=== PATIENT | female | born 1955 | race African-American/Black ===

== ENCOUNTER 2016-12-14 21:48 | Emergency (ER) | payer MEDICARE, OTHER ==
[2015-09-09 05:38] VITALS: BP 114/78
[~2016-12-14] VITALS: Ht 170.2 cm; Wt 124.7 kg
[~2016-12-14 21:48] MED LIST: ASPI-482 PO; HYDR25TA9 PO; LISI10TA2 PO; LORA10TA3 PO; LORA10TA68 PO; RUTI1TAB PO
--- NOTE | 2016-12-14 22:57 | ED.ADGEN ---
Past Medical History Past Medical History: Asthma, COPD, Diabetes-Type II, Hypertension, Schizophrenia, TIA, Other Additional Past Medical Histor: chronic pain, obesity Past Surgical History: , Tonsillectomy Alcohol Use: None Drug Use: None Adult General Chief Complaint Chief Complaint: FACE PAIN HPI HPI Patient is a 61 year old woman, history of hypertension, type 2 diabetes mellitus, COPD, schizophrenia, who presents emergency Department with a complaint of right-sided facial pain and headache that began around 5:30 p.m. this afternoon. No neck pain, no injuries. Patient states she cannot take over- the-counter medications as they "cause my blood pressure to spike and my kidneys to fail". Patient states that she also experienced some shortness of breath" while running around today", has had swelling in her extremities are the past several days due to travel. She denies any chest pain, nausea or vomiting, any weakness numbness or tingling, states that the pain is located on the right side of her face, any sharp and stabbing in nature, with some radiation to the neck. No vision changes, urinary complaints, no drugs alcohol, admits to daily cigarette use. Denies any similar symptoms previously. Heart rate arrival was 102, blood pressure 153/92, oxygen saturation is 98% on room air, respiratory rate is 18 and unlabored. Review of Systems Review of Systems Constitutional: Denies fever or chills. [] Eyes: Denies change in visual acuity. [] HENT: Denies nasal congestion or sore throat. [] Respiratory: Denies cough, complaining of shortness of breath times one day, worse with activity. Cardiovascular: Denies chest pain or edema. [] GI: Denies abdominal pain, nausea, vomiting, bloody stools or diarrhea. [] : Denies dysuria. [] Musculoskeletal: Denies back pain or joint pain. [] Integument: Denies rash. [] Neurologic: Denies focal weakness or sensory changes. Right-sided headache, right-sided facial pain. Endocrine: Denies polyuria or polydipsia. [] Lymphatic: Denies swollen glands. [] Psychiatric: Denies depression or anxiety. [] Current Medications Current Medications Current Medications Medications (Trade) Dose Ordered Sig/Lupis Start Time Stop Time Status Last Admin Dose Admin Diphenhydramine HCl (Benadryl) 25 mg 1X ONCE 12/14/16 23:00 12/14/16 23:01 DC 12/14/16 23:39 25 MG Prochlorperazine Edisylate (Compazine) 10 mg 1X ONCE 12/14/16 23:00 12/14/16 23:01 DC 12/14/16 23:39 10 MG Allergies Allergies Allergies Coded Allergies Type Severity Reaction Last Updated Verified codeine Allergy Severe anaphylactic reaction 02/26/14 Yes Penicillins Allergy Intermediate 12/14/16 Yes Sulfa (Sulfonamide Antibiotics) Allergy Unknown 02/26/14 Yes erythromycin base Allergy Unknown 02/26/14 Yes Physical Exam Physical Exam Constitutional: Well developed, well nourished, no acute distress, non-toxic appearance. [] HENT: Normocephalic, atraumatic, bilateral external ears normal, oropharynx moist, no oral exudates, nose normal. [] Eyes: PERRLA, EOMI, conjunctiva normal, no discharge. [] Neck: Normal range of motion, no tenderness, supple, no stridor. Negative jolt accentuation test. [] Cardiovascular:Heart rate regular rhythm, no murmur, S1, S2, rubs or gallops. [] Lungs & Thorax: Bilateral breath sounds clear to auscultation, no wheezing, rhonchi, rales. No chest wall tenderness. [] Abdomen: Bowel sounds normal, soft, obese, no tenderness, no rebound, rigidity, no guarding, no masses, no pulsatile masses. [] Skin: Warm, dry, no erythema, no rash. [] Back: No tenderness, no CVA tenderness. [] Extremities: No tenderness, no cyanosis, no clubbing, ROM intact, no edema. Negative Homans sign. [] Neurologic: Alert and oriented X 3, normal motor function, normal sensory function, no focal deficits noted. [] Psychologic: Affect normal, judgement normal, mood normal. [] Current Patient Data Vital Signs Vital Signs Date Time Temp Pulse Resp B/P Pulse Ox O2 Delivery O2 Flow Rate FiO2 12/14/16 22:15 98.7 100 20 153/92 95 Room Air 98.7 Lab Values Laboratory Tests Test 12/14/16 23:05 12/14/16 23:27 12/14/16 23:30 White Blood Count 7.4x10^3/uL (4.0-11.0) Red Blood Count 4.25x10^6/uL (3.50-5.40) Hemoglobin 12.2g/dL (12.0-15.5) Hematocrit 37.1% (36.0-47.0) Mean Corpuscular Volume 87fL (79-100) Mean Corpuscular Hemoglobin 29pg (25-35) Mean Corpuscular Hemoglobin Concent 33g/dL (31-37) Red Cell Distribution Width 14.0% (11.5-14.5) Platelet Count 163x10^3/uL (140-400) Neutrophils (%) (Auto) 57% (31-73) Lymphocytes (%) (Auto) 34% (24-48) Monocytes (%) (Auto) 7% (0-9) Eosinophils (%) (Auto) 1% (0-3) Basophils (%) (Auto) 1% (0-3) Neutrophils # (Auto) 4.2x10^3uL (1.8-7.7) Lymphocytes # (Auto) 2.5x10^3/uL (1.0-4.8) Monocytes # (Auto) 0.5x10^3/uL (0.0-1.1) Eosinophils # (Auto) 0.1x10^3/uL (0.0-0.7) Basophils # (Auto) 0.1x10^3/uL (0.0-0.2) Sodium Level 143mmol/L (136-145) Potassium Level 3.6mmol/L (3.5-5.1) Chloride Level 106mmol/L (98-107) Carbon Dioxide Level 30mmol/L (21-32) Anion Gap 7 (6-14) Blood Urea Nitrogen 10mg/dL (7-20) Creatinine 0.9mg/dL (0.6-1.0) Estimated GFR (Cockcroft-Gault) 77.5 BUN/Creatinine Ratio 11 (6-20) Glucose Level 139mg/dL (70-99) H Calcium Level 9.2mg/dL (8.5-10.1) Total Bilirubin 0.3mg/dL (0.2-1.0) Aspartate Amino Transferase (AST) 21U/L (15-37) Alanine Aminotransferase (ALT) 21U/L (14-59) Alkaline Phosphatase 61U/L (46-116) Troponin I Quantitative < 0.017ng/mL (0.000-0.055) LN-Lsz-T-Type Natriuretic Peptide 88pg/mL (0-124) Total Protein 7.1g/dL (6.4-8.2) Albumin 3.8g/dL (3.4-5.0) Albumin/Globulin Ratio 1.2 (1.0-1.7) Influenza Type A Antigen Negative (NEGATIVE) Influenza Type B Antigen Negative (NEGATIVE) Urine Collection Type Unknown Urine Color Yellow Urine Clarity Clear Urine pH 6.0 Urine Specific [place] 1.010 Urine Protein Negativemg/dL (NEG-TRACE) Urine Glucose (UA) Negativemg/dL (NEG) Urine Ketones (Stick) Negativemg/dL (NEG) Urine Blood Negative (NEG) Urine Nitrite Negative (NEG) Urine Bilirubin Negative (NEG) Urine Urobilinogen Dipstick 0.2mg/dL (0.2 mg/dL) Urine Leukocyte Esterase Negative (NEG) Urine RBC Occ/HPF (0-2) Urine WBC Occ/HPF (0-4) Urine Squamous Epithelial Cells Few/LPF Urine Bacteria Few/HPF (0-FEW) Urine Mucus Slight/LPF Urine Opiates Screen Neg (NEG) Urine Methadone Screen Neg (NEG) Urine Barbiturates Neg (NEG) Urine Phencyclidine Screen Neg (NEG) Urine Amphetamine/Methamphetamine Neg (NEG) Urine Benzodiazepines Screen Neg (NEG) Urine Cocaine Screen Neg (NEG) Urine Cannabinoids Screen Neg (NEG) Urine Ethyl Alcohol Neg (NEG) Laboratory Tests 12/14/16 23:05 Laboratory Tests 12/14/16 23:05 EKG EKG ECG: Sinus tachycardia, heart rate 105 beats/minute, left axis deviation with left ventricle hypertrophy, QTC of 461, SD of 122, QRS of 94, no ST elevations or depressions, abnormal ECG, does not meet STEMI criteria. As interpreted by me. [] ECG: Sinus rhythm, heart rate 80 bpm, no ectopy. As noted by me. Radiology/Procedures Radiology/Procedures [] [address] [place] [address] IMAGING REPORT Signed PATIENT: DANY CHAVES ACCOUNT: [id number] : 1955 LOCATION: ER AGE: 61 SEX: F EXAM STATUS: REG ER ORD. PHYSICIAN: SOO SANCHEZ DO REASON: VELASQUEZ/R facial pain PROCEDURE: HEAD WO CONTRAST PROCEDURE CT head without intravenous contrast. HISTORY Headaches. Facial pain. TECHNIQUE Axial images are obtained of the head from the skull base through the vertex without IV contrast COMPARISON None. FINDINGS The ventricles are appropriate in size, shape, and location for the patient's age.No obvious intracranial mass, mass-effect, midline shift, hemorrhage or obvious acute infarction is identified.Basilar cisterns are patent. Bone windows demonstrate no acute calvarial abnormality.The visualized paranasal sinuses appear clear. IMPRESSION No acute intracranial process. Electronically signed by: Bo Schilling MD (Dec 14, 2016 23:31:33) DICTATED and SIGNED BY: BO SCHILLING MD DATE: 12/14/162330 CC: SOO SANCHEZ DO; UNKNOWN PCP NAME ~ Chest x-ray: One view: Top normal cardiac silhouette, no infiltrates, no effusions, no soft tissue or bony abnormalities identified. As interpreted by me. Course & Med Decision Making Course & Med Decision Making Pertinent Labs and Imaging studies reviewed. (See chart for details) Patient with multiple complaints, although primarily her complaint appears to be the right facial pain, distribution be consistent with trigeminal neuralgia. Noted be mildly tachycardic, at 105-106 in the ED, patient states that this is what happens when she experiences pain. Patient received Benadryl and Compazine in the ED, we'll CT of the head was pending based on the location and type of complaints. CT of the head along with x-ray and laboratory studies revealed no concerning findings aside from mild hyperglycemia. On reevaluation patient states her headache is fully resolved, she states that she is ready to go home. Patient is now ambulatory in the ED without issue, I did discuss with patient that she will require additional follow-up with her primary care provider and neurology for additional evaluation for potential trigeminal neuralgia. Patient heart rate is now in the 80s. We also discussed concerning symptoms that prompt return to the emergency department. Patient voiced understanding and agreement, was ambulating without issue in the ED. Discharged home in stable condition with family. Dragon Disclaimer Dragon Disclaimer This electronic medical record was generated, in whole or in part, using a voice recognition dictation system. Departure Impression: Primary Impression: Facial pain Disposition: 01 HOME, SELF-CARE Condition: IMPROVED SOO SANCHEZ DO Dec 14, 2016 22:57
[2016-12-14] MEDS ORDERED: DIPHENHYDRAMINE 50 MG/ML VIAL IVP ONE (23:00)
[2016-12-14] MEDS ORDERED: PROCHLORPERAZINE 10 MG/2 ML VIAL. IM ONE (23:00)
[2016-12-14 23:16] LABS: BASO # 0.1 x10^3/uL (0.0-0.2); BASO % 1 % (0-3); EOS % 1 % (0-3); HEMATOCRIT 37.1 % (36.0-47.0); HEMOGLOBIN 12.2 g/dL (12.0-15.5); LYMPH # 2.5 x10^3/uL (1.0-4.8); LYMPH % 34 % (24-48); MEAN CORPUSCULAR HEMOGLOBIN 29 pg (25-35); MEAN CORPUSCULAR HGB CONC 33 g/dL (31-37); MEAN CORPUSCULAR VOLUME 87 fL (79-100); MONO % 7 % (0-9); NEUT % 57 % (31-73); PLATELET COUNT 163 x10^3/uL (140-400); RED BLOOD COUNT 4.25 x10^6/uL (3.50-5.40); WHITE BLOOD COUNT 7.4 x10^3/uL (4.0-11.0)
[2016-12-14 23:28] LABS: CALCIUM 9.2 mg/dL (8.5-10.1); CREATININE 0.9 mg/dL (0.6-1.0); GFR 77.5; POTASSIUM 3.6 mmol/L (3.5-5.1)
--- NOTE | 2016-12-14 23:32 | RAD ---
PROCEDURE CT head without intravenous contrast. HISTORY Headaches. Facial pain. TECHNIQUE Axial images are obtained of the head from the skull base through the vertex without IV contrast COMPARISON None. FINDINGS The ventricles are appropriate in size, shape, and location for the patient's age.No obvious intracranial mass, mass-effect, midline shift, hemorrhage or obvious acute infarction is identified.Basilar cisterns are patent. Bone windows demonstrate no acute calvarial abnormality.The visualized paranasal sinuses appear clear. IMPRESSION No acute intracranial process. Electronically signed by: Bo Green MD (Dec 14, 2016 23:31:33)
[2016-12-14 23:34] LABS: ALBUMIN 3.8 g/dL (3.4-5.0); ALBUMIN/GLOBULIN RATIO 1.2 (1.0-1.7); TOTAL BILIRUBIN 0.3 mg/dL (0.2-1.0); TOTAL PROTEIN 7.1 g/dL (6.4-8.2)
[2016-12-15 00:03] LABS: BILIRUBIN,URINE NEGATIVE (NEG); GLUCOSE,URINE NEGATIVE (NEG); NITRITE,URINE NEGATIVE (NEG); PROTEIN,URINE NEGATIVE (NEG-TRACE); UROBILINOGEN,URINE 0.2 mg/dL (0.2 mg/dL)
[2016-12-15 00:06] LABS: BARBITURATES NEG (NEG); BENZODIAZEPINES NEG (NEG); CANNABINOIDS NEG (NEG); COCAINE NEG (NEG); METHADONE NEG (NEG); OPIATES NEG (NEG); PHENCYCLIDINE NEG (NEG)
[2016-12-15 00:07] LABS: ETHANOL, URINE NEG (NEG)
[2016-12-15 00:14] LABS: BACTERIA,URINE FEW /HPF (0-FEW); RBC,URINE OCC /HPF (0-2); SQUAMOUS EPITHELIAL CELL,UR FEW /LPF; WBC,URINE OCC /HPF (0-4)
[2016-12-15 00:18] LABS: OBC FLU VALID
--- NOTE | 2016-12-15 06:59 | EKG ---
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
--- NOTE | 2016-12-15 07:57 | RAD ---
Portable chest, 12/14/2016: History: Shortness of breath Comparison is made to a study from 02/26/2014. The heart appears to be within normal limits in size. There is mild calcific plaquing of the thoracic aorta. The pulmonary vascularity is normal. No pulmonary infiltrates are seen. There is no evidence of pleural fluid. IMPRESSION: No acute cardiopulmonary abnormality is detected.
== END 2016-12-15 01:04 | disposition home or self-care (01) ==
LOC: ER 21:48
DX: R51 Headache (principal); E11.65 Type 2 diabetes mellitus with hyperglycemia; R06.02 Shortness of breath; M79.89 Other specified soft tissue disorders; R00.0 Tachycardia, unspecified; F20.9 Schizophrenia, unspecified; G89.29 Other chronic pain; I10 Essential (primary) hypertension; J44.9 Chronic obstructive pulmonary disease, unspecified; J45.909 Unspecified asthma, uncomplicated; E66.9 Obesity, unspecified; Z86.73 Personal history of transient ischemic attack (TIA), and cerebral infarction without residual deficits; Z68.41 Body mass index [BMI] 40.0-44.9, adult; Z88.2 Allergy status to sulfonamides; Z88.0 Allergy status to penicillin; Z88.5 Allergy status to narcotic agent; Z88.1 Allergy status to other antibiotic agents
CPT/HCPCS: 36415; 70450; 71010; 80053; 81001; 83880; 84484; 85027; 87804; 93005; 96372; 96374; 99285; G0481; J0780; J1200

== ENCOUNTER 2016-12-18 06:53 | Emergency (ER) | payer MEDICARE, OTHER ==
[~2016-12-18] VITALS: Ht 170.2 cm; Wt 123.8 kg
--- NOTE | 2016-12-18 07:16 | PHYS DOC ---
Past Medical History Past Medical History: Asthma, COPD, Diabetes-Type II, Hypertension, Schizophrenia, TIA, Other Additional Past Medical Histor: chronic pain, obesity Past Surgical History: Tonsillectomy Alcohol Use: None Drug Use: None Adult General Chief Complaint Chief Complaint: HEADACHE HPI HPI Patient is a 61 year old -[place] female who presents with headache and left sided muscle cramps. She has a past medical history of asthma, COPD, type 2 diabetes, hypertension, chronic pain, obesity and schizophrenia. She was seen here 4 days ago for her headache and had a negative CT scan and workup at that time. She states that this is her normal headache subsequent top of her head and goes down to the bottom of her head she rates the pain about a 3 out of 10. She also complains of left-sided body pain that goes down into her left leg and makes her "toes curl" from spasming. She denies any fevers chills nausea or vomiting, she denies any chest pain or shortness of breath. She did take an aspirin yesterday when the symptoms started in late and took a nap. She denies any neck stiffness or confusion. She states the headache was gradual in nature and this is no different than her other headaches she has. Review of Systems Review of Systems Constitutional: Denies fever or chills [] Eyes: Denies change in visual acuity, redness, or eye pain [] HENT: Denies nasal congestion or sore throat [] Respiratory: Denies cough or shortness of breath [] Cardiovascular: No additional information not addressed in HPI [] GI: Denies abdominal pain, nausea, vomiting, bloody stools or diarrhea [] : Denies dysuria or hematuria [] Musculoskeletal: Denies back pain or joint pain, positive for left leg cramps [] Integument: Denies rash or skin lesions [] Neurologic: Denies focal weakness or sensory changes , positive for headache [] Endocrine: Denies polyuria or polydipsia [] Current Medications Current Medications Current Medications Medications (Trade) Dose Ordered Sig/Lupis Start Time Stop Time Status Last Admin Dose Admin Acetaminophen (Tylenol) 1,000 mg 1X ONCE 12/18/16 07:30 12/18/16 07:31 DC 12/18/16 08:22 1,000 MG Allergies Allergies Allergies Coded Allergies Type Severity Reaction Last Updated Verified codeine Allergy Severe anaphylactic reaction 02/26/14 Yes Penicillins Allergy Intermediate 12/14/16 Yes Sulfa (Sulfonamide Antibiotics) Allergy Unknown 02/26/14 Yes erythromycin base Allergy Unknown 02/26/14 Yes Physical Exam Physical Exam Constitutional: Well developed, well nourished, no acute distress, non-toxic appearance. [] HENT: Normocephalic, atraumatic, bilateral external ears normal, oropharynx moist, no oral exudates, nose normal. [] Eyes: PERRLA, EOMI, conjunctiva normal, no discharge. [] Neck: Normal range of motion, no tenderness, supple, no stridor. [] Cardiovascular:Heart rate regular rhythm, no murmur [] Lungs & Thorax: Bilateral breath sounds clear to auscultation [] Abdomen: Bowel sounds normal, soft, no masses, no pulsatile masses., Mild tenderness to very light touch along the left lateral abdomen [] Skin: Warm, dry, no erythema, no rash. [] Back: No tenderness, no CVA tenderness. [] Extremities: No tenderness, no cyanosis, no clubbing, ROM intact, no edema. [] Neurologic: Alert and oriented X 3, normal motor function, normal sensory function, no focal deficits noted. [] Psychologic: Affect normal, judgement normal, mood normal. [] Current Patient Data Vital Signs Vital Signs Date Time Temp Pulse Resp B/P Pulse Ox O2 Delivery O2 Flow Rate FiO2 12/18/16 07:10 97.9 101 18 184/86 96 Room Air 97.9 Lab Values Laboratory Tests Test 12/18/16 07:30 12/18/16 07:40 Urine Collection Type Void Urine Color Yellow Urine Clarity Clear Urine pH 6.0 Urine Specific [place] 1.010 Urine Protein Negativemg/dL (NEG-TRACE) Urine Glucose (UA) Negativemg/dL (NEG) Urine Ketones (Stick) Negativemg/dL (NEG) Urine Blood Negative (NEG) Urine Nitrite Negative (NEG) Urine Bilirubin Negative (NEG) Urine Urobilinogen Dipstick 0.2mg/dL (0.2 mg/dL) Urine Leukocyte Esterase Negative (NEG) Urine RBC Occ/HPF (0-2) Urine WBC Occ/HPF (0-4) Urine Squamous Epithelial Cells Mod/LPF Urine Bacteria Moderate/HPF (0-FEW) Urine Mucus Slight/LPF Urine Test Negative (NEG) White Blood Count 6.0x10^3/uL (4.0-11.0) Red Blood Count 4.80x10^6/uL (3.50-5.40) Hemoglobin 13.6g/dL (12.0-15.5) Hematocrit 42.0% (36.0-47.0) Mean Corpuscular Volume 87fL (79-100) Mean Corpuscular Hemoglobin 28pg (25-35) Mean Corpuscular Hemoglobin Concent 33g/dL (31-37) Red Cell Distribution Width 13.8% (11.5-14.5) Platelet Count 200x10^3/uL (140-400) Neutrophils (%) (Auto) 56% (31-73) Lymphocytes (%) (Auto) 34% (24-48) Monocytes (%) (Auto) 8% (0-9) Eosinophils (%) (Auto) 2% (0-3) Basophils (%) (Auto) 1% (0-3) Neutrophils # (Auto) 3.4x10^3uL (1.8-7.7) Lymphocytes # (Auto) 2.0x10^3/uL (1.0-4.8) Monocytes # (Auto) 0.5x10^3/uL (0.0-1.1) Eosinophils # (Auto) 0.1x10^3/uL (0.0-0.7) Basophils # (Auto) 0.0x10^3/uL (0.0-0.2) Sodium Level 139mmol/L (136-145) Potassium Level 4.3mmol/L (3.5-5.1) Chloride Level 101mmol/L (98-107) Carbon Dioxide Level 29mmol/L (21-32) Anion Gap 9 (6-14) Blood Urea Nitrogen 14mg/dL (7-20) Creatinine 0.9mg/dL (0.6-1.0) Estimated GFR (Cockcroft-Gault) 77.5 BUN/Creatinine Ratio 16 (6-20) Glucose Level 116mg/dL (70-99) H Calcium Level 9.5mg/dL (8.5-10.1) Total Bilirubin 0.6mg/dL (0.2-1.0) Aspartate Amino Transferase (AST) 29U/L (15-37) Alanine Aminotransferase (ALT) 29U/L (14-59) Alkaline Phosphatase 68U/L (46-116) Total Protein 8.6g/dL (6.4-8.2) H Albumin 4.2g/dL (3.4-5.0) Albumin/Globulin Ratio 1.0 (1.0-1.7) Lipase 122U/L (73-393) Laboratory Tests 12/18/16 07:40 Laboratory Tests 12/18/16 07:40 EKG EKG [] Radiology/Procedures Radiology/Procedures [] Impressions: Headache Muscle cramps Course & Med Decision Making Course & Med Decision Making Pertinent Labs and Imaging studies reviewed. (See chart for details) Patient presented with mild headache which improved with 1 g of Tylenol and left leg muscle cramps. I will obtain basic labs to look at lipase and electrolytes. These are all normal. She is feeling much better and will be discharged with cyclobenzaprine 10 mg when necessary every 8 hours for muscle spasms. She is instructed not to drive while taking his medicines that can make her sleepy and impair her judgment. She is agreeable plan being discharged in stable condition to follow up with her primary care physician within the week. She is to return ER for worsening symptoms, chest pain shortness breath or other concerns. Dragon Disclaimer Dragon Disclaimer This electronic medical record was generated, in whole or in part, using a voice recognition dictation system. Departure Departure Impression: Primary Impression: Headache Additional Impression: Muscle spasm Disposition: 01 HOME, SELF-CARE Condition: IMPROVED Referrals: UNKNOWN PCP NAME (PCP) Patient Instructions: Muscle Cramps, [id number] Scripts Cyclobenzaprine Hcl 10 Mg Tablet1 Tab PO QHS #30 TAB Prov:JOSE RAMSAY MD 12/18/16 Problem Qualifiers JOSE RAMSAY MD Dec 18, 2016 07:16
[2016-12-18] MEDS ORDERED: ACETAMINOPHEN 500 MG TABLET PO ONE (07:30)
[2016-12-18 07:42] LABS: BILIRUBIN,URINE NEGATIVE (NEG); GLUCOSE,URINE NEGATIVE (NEG); NITRITE,URINE NEGATIVE (NEG); PROTEIN,URINE NEGATIVE (NEG-TRACE); UROBILINOGEN,URINE 0.2 mg/dL (0.2 mg/dL)
[2016-12-18 07:46] LABS: NEG OBC UR NEG; POS OBC UR POS
[2016-12-18 07:49] LABS: BACTERIA,URINE MODERATE /HPF (0-FEW); RBC,URINE OCC /HPF (0-2); SQUAMOUS EPITHELIAL CELL,UR MOD /LPF; WBC,URINE OCC /HPF (0-4)
[2016-12-18 07:54] LABS: BASO % 1 % (0-3); EOS % 2 % (0-3); HEMOGLOBIN 13.6 g/dL (12.0-15.5); LYMPH % 34 % (24-48); MEAN CORPUSCULAR HEMOGLOBIN 28 pg (25-35); MEAN CORPUSCULAR HGB CONC 33 g/dL (31-37); MEAN CORPUSCULAR VOLUME 87 fL (79-100); MONO % 8 % (0-9); NEUT % 56 % (31-73); PLATELET COUNT 200 x10^3/uL (140-400); RED CELL DISTRIBUTION WIDTH 13.8 % (11.5-14.5)
[2016-12-18 08:11] LABS: CALCIUM 9.5 mg/dL (8.5-10.1); CREATININE 0.9 mg/dL (0.6-1.0); GFR 77.5; POTASSIUM 4.3 mmol/L (3.5-5.1)
[2016-12-18 08:16] LABS: ALBUMIN 4.2 g/dL (3.4-5.0); TOTAL BILIRUBIN 0.6 mg/dL (0.2-1.0); TOTAL PROTEIN 8.6 g/dL (6.4-8.2)
[2016-12-18] MEDS ORDERED: CYCL10TA2 PO (08:57)
[2016-12-18 09:03] VITALS: BP 176/84
== END 2016-12-18 09:05 | disposition home or self-care (01) ==
LOC: ER 06:53
DX: R51 Headache (principal); M62.838 Other muscle spasm; J45.909 Unspecified asthma, uncomplicated; I10 Essential (primary) hypertension; E11.9 Type 2 diabetes mellitus without complications; J44.9 Chronic obstructive pulmonary disease, unspecified; G89.29 Other chronic pain; E66.9 Obesity, unspecified; Z68.41 Body mass index [BMI] 40.0-44.9, adult; Z86.73 Personal history of transient ischemic attack (TIA), and cerebral infarction without residual deficits; Z88.0 Allergy status to penicillin; Z88.2 Allergy status to sulfonamides; Z88.1 Allergy status to other antibiotic agents; Z88.5 Allergy status to narcotic agent
CPT/HCPCS: 36415; 80053; 81001; 81025; 83690; 85027; 87086; 99284

== ENCOUNTER 2016-12-29 12:15 | Inpatient (IN) | payer MEDICARE, OTHER ==
[~2016-12-29] VITALS: Ht 170.2 cm; Wt 117.2 kg
[~2016-12-29 12:15] MED LIST changes: +CYCL10TA2 PO
[2016-12-29 13:09] LABS: BASO # 0.1 x10^3/uL (0.0-0.2); BASO % 1 % (0-3); EOS % 2 % (0-3); HEMATOCRIT 40.2 % (36.0-47.0); HEMOGLOBIN 13.1 g/dL (12.0-15.5); LYMPH # 2.4 x10^3/uL (1.0-4.8); LYMPH % 42 % (24-48); MEAN CORPUSCULAR HEMOGLOBIN 28 pg (25-35); MEAN CORPUSCULAR HGB CONC 33 g/dL (31-37); MEAN CORPUSCULAR VOLUME 86 fL (79-100); MONO % 8 % (0-9); NEUT % 48 % (31-73); PLATELET COUNT 184 x10^3/uL (140-400); RED BLOOD COUNT 4.66 x10^6/uL (3.50-5.40); RED CELL DISTRIBUTION WIDTH 13.9 % (11.5-14.5); WHITE BLOOD COUNT 5.8 x10^3/uL (4.0-11.0)
--- NOTE | 2016-12-29 13:10 | ED.ADGEN ---
Past Medical History Past Medical History: Asthma, COPD, Diabetes-Type II, Hypertension, Schizophrenia, TIA, Other Additional Past Medical Histor: chronic pain, obesity Past Surgical History: Tonsillectomy Alcohol Use: None Drug Use: None Adult General Chief Complaint Chief Complaint: NEURO SYMPTOMS/DEFICITS HPI HPI Patient is a 61 year old woman, history of hypertension, TIA, type 2 diabetes mellitus, COPD, schizophrenia, who presents to the emergency department with a complaint of right hand weakness, which began around 7:00 in the morning while she was watching breakfast dishes. Patient states that she then noted she developed a gradually worsening right-sided headache, similar headaches that she 's had previously, which she states radiated down the entire right side of her head into her neck and right upper extremity. Patient states she is also experiencing some numbness in her fifth digit of the right hand, and in the left leg, also experiencing pain in the left lower extremity along with the numbness, no weakness in the left lower extremity. She states that the symptoms have been persistent since about 7:00 this morning, states that she experienced previous symptoms several weeks ago, was diagnosed with a TIA. She states that she took 5 baby aspirin at home, she generally is told to take baby aspirin on a regular basis, she states she isn't compliant all other medications. Denies any injuries, any other areas of weakness, numbness or tingling, states that she has felt nauseous the past several days, with occasional episodes of shortness of breath, no chest pain, no fevers or chills. Review of Systems Review of Systems Constitutional: Denies fever or chills. [] Eyes: Denies change in visual acuity. [] HENT: Denies nasal congestion or sore throat. [] Respiratory: Denies cough, complaining of mild shortness of breath today.] Cardiovascular: Denies chest pain or edema. [] GI: Denies abdominal pain, nausea, vomiting, bloody stools or diarrhea. [] : Denies dysuria. [] Musculoskeletal: Denies back pain or joint pain. [] Integument: Denies rash. [] Neurologic: Complaining of right-sided headache, radiating down into the right side of her body, with weakness in her right hand, associated with pain in the arm as well, also pain in the left lower extremity and tingling. [] Endocrine: Denies polyuria or polydipsia. [] Lymphatic: Denies swollen glands. [] Psychiatric: Denies depression or anxiety. [] Allergies Allergies Allergies Coded Allergies Type Severity Reaction Last Updated Verified codeine Allergy Severe anaphylactic reaction 02/26/14 Yes Penicillins Allergy Intermediate 12/14/16 Yes Sulfa (Sulfonamide Antibiotics) Allergy Unknown 02/26/14 Yes erythromycin base Allergy Unknown 02/26/14 Yes Physical Exam Physical Exam Constitutional: Well developed, well nourished, no acute distress, non-toxic appearance. [] HENT: Normocephalic, atraumatic, bilateral external ears normal, oropharynx moist, no oral exudates, nose normal. [] Eyes: PERRLA, EOMI, conjunctiva normal, no discharge. [] Neck: Normal range of motion, no tenderness, supple, no stridor. [] Cardiovascular:Heart rate regular rhythm, no murmur, S1, S2, no rubs or gallops. [] Lungs & Thorax: Bilateral breath sounds clear to auscultation [] Abdomen: Bowel sounds normal, soft, no tenderness, no masses, no pulsatile masses. [] Skin: Warm, dry, no erythema, no rash. [] Back: No tenderness, no CVA tenderness. [] Extremities: No tenderness, no cyanosis, no clubbing, ROM intact, no edema. [] Neurologic: Alert and oriented X 3, patient states that she is seen me previously, during a recent visit, any strokes feels performed by nursing staff , with report of 10, however the patient does answer all questions appropriately during my interview, does complain of decreased sensation in the left lower extremity, and right hand and exhibits 5 out of 5 strength in all extremities during my examination. Psychologic: Affect normal, judgement normal, mood normal. [] Current Patient Data Vital Signs Vital Signs Date Time Temp Pulse Resp B/P Pulse Ox O2 Delivery O2 Flow Rate FiO2 12/29/16 12:30 98.8 98 19 151/92 96 Room Air 98.8 Lab Values Laboratory Tests Test 12/29/16 12:30 12/29/16 13:10 White Blood Count 5.8x10^3/uL (4.0-11.0) Red Blood Count 4.66x10^6/uL (3.50-5.40) Hemoglobin 13.1g/dL (12.0-15.5) Hematocrit 40.2% (36.0-47.0) Mean Corpuscular Volume 86fL (79-100) Mean Corpuscular Hemoglobin 28pg (25-35) Mean Corpuscular Hemoglobin Concent 33g/dL (31-37) Red Cell Distribution Width 13.9% (11.5-14.5) Platelet Count 184x10^3/uL (140-400) Neutrophils (%) (Auto) 48% (31-73) Lymphocytes (%) (Auto) 42% (24-48) Monocytes (%) (Auto) 8% (0-9) Eosinophils (%) (Auto) 2% (0-3) Basophils (%) (Auto) 1% (0-3) Neutrophils # (Auto) 2.8x10^3uL (1.8-7.7) Lymphocytes # (Auto) 2.4x10^3/uL (1.0-4.8) Monocytes # (Auto) 0.4x10^3/uL (0.0-1.1) Eosinophils # (Auto) 0.1x10^3/uL (0.0-0.7) Basophils # (Auto) 0.1x10^3/uL (0.0-0.2) Prothrombin Time 13.6SEC (11.7-14.0) Prothrombin Time INR 1.1 (0.8-1.1) PTT 26SEC (24-38) Sodium Level 141mmol/L (136-145) Potassium Level 4.0mmol/L (3.5-5.1) Chloride Level 103mmol/L (98-107) Carbon Dioxide Level 29mmol/L (21-32) Anion Gap 9 (6-14) Blood Urea Nitrogen 10mg/dL (7-20) Creatinine 0.9mg/dL (0.6-1.0) Estimated GFR (Cockcroft-Gault) 77.5 BUN/Creatinine Ratio 11 (6-20) Glucose Level 93mg/dL (70-99) Calcium Level 9.2mg/dL (8.5-10.1) Total Bilirubin 0.7mg/dL (0.2-1.0) Aspartate Amino Transferase (AST) 29U/L (15-37) Alanine Aminotransferase (ALT) 27U/L (14-59) Alkaline Phosphatase 65U/L (46-116) Troponin I Quantitative < 0.017ng/mL (0.000-0.055) Total Protein 7.4g/dL (6.4-8.2) Albumin 4.1g/dL (3.4-5.0) Albumin/Globulin Ratio 1.2 (1.0-1.7) Urine Collection Type Unknown Urine Color Yellow Urine Clarity Clear Urine pH 6.5 Urine Specific [place] 1.010 Urine Protein Negativemg/dL (NEG-TRACE) Urine Glucose (UA) Negativemg/dL (NEG) Urine Ketones (Stick) Negativemg/dL (NEG) Urine Blood Negative (NEG) Urine Nitrite Negative (NEG) Urine Bilirubin Negative (NEG) Urine Urobilinogen Dipstick 0.2mg/dL (0.2 mg/dL) Urine Leukocyte Esterase Negative (NEG) Urine RBC 0/HPF (0-2) Urine WBC 0/HPF (0-4) Urine Squamous Epithelial Cells Few/LPF Urine Bacteria Few/HPF (0-FEW) Urine Opiates Screen Neg (NEG) Urine Methadone Screen Neg (NEG) Urine Barbiturates Neg (NEG) Urine Phencyclidine Screen Neg (NEG) Urine Amphetamine/Methamphetamine Neg (NEG) Urine Benzodiazepines Screen Neg (NEG) Urine Cocaine Screen Neg (NEG) Urine Cannabinoids Screen Neg (NEG) Urine Ethyl Alcohol Neg (NEG) Laboratory Tests 12/29/16 12:30 Laboratory Tests 12/29/16 12:30 EKG EKG EC:15: Sinus rhythm, heart rate 94 beats minute, left axis deviation with left ventricle hypertrophy noted, QTc of 443, DC 166, QRS of 104, patient with T -wave inversions noted in lead 3, abnormal ECG, does not meet STEMI criteria. As interpreted by me. [] Radiology/Procedures Radiology/Procedures [] [facility] [address] [place], [place] [id number] IMAGING REPORT Signed PATIENT: DANY CHAVES ACCOUNT: [id number] : 1955 LOCATION: ER AGE: 61 SEX: F EXAM [id number] STATUS: REG ER ORD. PHYSICIAN: SOO SANCHEZ DO REASON: SOB/weakness PROCEDURE: CHEST AP ONLY; HEAD WO CONTRAST Exam performed: CT scan of the head without contrast. Date of Service: 12/29/16. Comparison: CT head without contrast from 12/14/16. Clinical History: Weakness in the right hand with headache for 2 days Technique: Helical acquisitions are obtained from the foramen magnum to the vertex without intravenous administration of contrast. Findings: The ventricles are midline without evidence of dilatation. There is mild atrophy. Normal sierra-white differentiation is maintained. There is no extra axial fluid collection, intraparenchymal hemorrhage or mass lesion. The visualized portions of the orbits, paranasal sinuses and the mastoid air cells appear clear. The calvarium is intact. Impression: 1. No acute intracranial process detected. PQRS Compliance Statement: One or more of the following individualized dose reduction techniques were utilized for this examination: 1. Automated exposure control 2. Adjustment of the mA and/or kV according to patient size 3. Use of iterative reconstruction technique End impression Single AP upright portable view chest findings: Cardiomediastinal silhouette is within upper limits of normal. No acute infiltrates, effusion or pneumothorax is detected. The bony structures are normal. Impression: No acute cardiopulmonary process is detected. DICTATED and SIGNED BY: HUDSON OCAMPO MD DATE: 12/29/16 1327 CC: SOO SANCHEZ DO; SUSANNA GARCIA ~ Impressions: [facility] [address] [place] [address] IMAGING REPORT Signed PATIENT: DANY CHAVES ACCOUNT: [id number] : 1955 LOCATION: ER AGE: 61 SEX: F EXAM [id number] STATUS: REG ER ORD. PHYSICIAN: SOO SANCHEZ DO REASON: SOB/weakness PROCEDURE: CHEST AP ONLY; HEAD WO CONTRAST Exam performed: CT scan of the head without contrast. Date of Service: 12/29/16. Comparison: CT head without contrast from 12/14/16. Clinical History: Weakness in the right hand with headache for 2 days Technique: Helical acquisitions are obtained from the foramen magnum to the vertex without intravenous administration of contrast. Findings: The ventricles are midline without evidence of dilatation. There is mild atrophy. Normal sierra-white differentiation is maintained. There is no extra axial fluid collection, intraparenchymal hemorrhage or mass lesion. The visualized portions of the orbits, paranasal sinuses and the mastoid air cells appear clear. The calvarium is intact. Impression: 1. No acute intracranial process detected. PQRS Compliance Statement: One or more of the following individualized dose reduction techniques were utilized for this examination: 1. Automated exposure control 2. Adjustment of the mA and/or kV according to patient size 3. Use of iterative reconstruction technique End impression Single AP upright portable view chest findings: Cardiomediastinal silhouette is within upper limits of normal. No acute infiltrates, effusion or pneumothorax is detected. The bony structures are normal. Impression: No acute cardiopulmonary process is detected. DICTATED and SIGNED BY: HUDSON OCAMPO MD DATE: 12/29/16 3483 CC: SOO SANCHEZ DO; SUSANNA GARCIA ~ Course & Med Decision Making Course & Med Decision Making Pertinent Labs and Imaging studies reviewed. (See chart for details) Patient is more than 6 hours out from reported initial onset of symptoms. Patient also noted to have presented with similar complaints on multiple other occasions, along with headache, is complaining of pain in her extremities with this associated report of paresthesias and weakness. CT of the head ordered, along with laboratory studies after discussion with patient. Although patient initially had a 90 stroke scale importance 10, during my examination she is oriented 4, 5-5 strength in all extremities, complaining of continued decreased sensation in her right fifth digit, this is the only complaint that remains, aside from the mild right-sided headache. Patient complaining of headache in the right side of her head, is consistent with symptoms that she's experienced previously, was gradual in onset, not associated with neck pain. Received CT of the head, chest x-ray, ECG and laboratory studies, no acutely concerning findings were identified. Did discuss the patient, at this point will admit to the hospital for evaluation by neurology, patient is a history of TIA as stated, and has already taken aspirin prior to arrival in the ED. I did contact the office of Dr. Raymundo, patient has previously seen Dr. Alexander, states that she is planning to follow up with the future with Dr. Raymundo, but has not yet been seen in this office, therefore I spoke with Dr. Mckeon of internal medicine, patient was accepted to her service as a full admission to the medical telemetry floor, with consultation placed request for Dr. Barrera neurology , along with bridge orders. Dragon Disclaimer Dragon Disclaimer This electronic medical record was generated, in whole or in part, using a voice recognition dictation system. Departure Impression: Primary Impression: Headache Additional Impression: Neurological complaint Disposition: ADMITTED INPATIENT Condition: IMPROVED Problem Qualifiers Primary Impression: Headache Headache type: unspecified Headache chronicity pattern: episodic headache Intractability: not intractable Qualified Code: R51 - Headache SOO SANCHEZ DO Dec 29, 2016 13:09
--- NOTE | 2016-12-29 13:18 | EKG ---
[facility] [address] [place] [address] Test Date: 2016-12-29 Test Time: 12:15:52 Pat Name: DANY CHAVES Department: Room: Gender: F Pole Maker: : 1955 Requested By: SOO SANCHEZ Order Number: [id number] Reading MD: Nate Arita Measurements Intervals [place] Rate: 94 P: 50 AK: 166 QRS: -29 QRSD: 104 T: 7 QT: 354 QTc: 443 Interpretive Statements SINUS RHYTHM ATRIAL PREMATURE COMPLEX(ES) Electronically Signed On 01-04-2017 14:19:28 ELECTROMECH[employer]ICAL EQUIPMENT TESTER by Nate Arita
[2016-12-29 13:19] LABS: BILIRUBIN,URINE NEGATIVE (NEG); GLUCOSE,URINE NEGATIVE (NEG); NITRITE,URINE NEGATIVE (NEG); PH,URINE 6.5; PROTEIN,URINE NEGATIVE (NEG-TRACE); UROBILINOGEN,URINE 0.2 mg/dL (0.2 mg/dL)
[2016-12-29 13:25] LABS: BARBITURATES NEG (NEG); BENZODIAZEPINES NEG (NEG); CANNABINOIDS NEG (NEG); COCAINE NEG (NEG); METHADONE NEG (NEG); OPIATES NEG (NEG); PHENCYCLIDINE NEG (NEG)
[2016-12-29 13:30] LABS: ETHANOL, URINE NEG (NEG)
[2016-12-29 13:31] LABS: INR 1.1 (0.8-1.1); PROTHROMBIN TIME PATIENT 13.6 SEC (11.7-14.0)
--- NOTE | 2016-12-29 13:31 | RAD ---
Exam performed: CT scan of the head without contrast. Date of Service: 12/29/16. Comparison: CT head without contrast from 12/14/16. Clinical History: Weakness in the right hand with headache for 2 days Technique: Helical acquisitions are obtained from the foramen magnum to the vertex without intravenous administration of contrast. Findings: The ventricles are midline without evidence of dilatation. There is mild atrophy. Normal sierra-white differentiation is maintained. There is no extra axial fluid collection, intraparenchymal hemorrhage or mass lesion. The visualized portions of the orbits, paranasal sinuses and the mastoid air cells appear clear. The calvarium is intact. Impression: 1. No acute intracranial process detected. PQRS Compliance Statement: One or more of the following individualized dose reduction techniques were utilized for this examination: 1. Automated exposure control 2. Adjustment of the mA and/or kV according to patient size 3. Use of iterative reconstruction technique End impression Single AP upright portable view chest findings: Cardiomediastinal silhouette is within upper limits of normal. No acute infiltrates, effusion or pneumothorax is detected. The bony structures are normal. Impression: No acute cardiopulmonary process is detected.
[2016-12-29 13:35] LABS: BACTERIA,URINE FEW /HPF (0-FEW); RBC,URINE 0 /HPF (0-2); SQUAMOUS EPITHELIAL CELL,UR FEW /LPF; WBC,URINE 0 /HPF (0-4)
[2016-12-29 13:39] LABS: CALCIUM 9.2 mg/dL (8.5-10.1); CREATININE 0.9 mg/dL (0.6-1.0); GFR 77.5
[2016-12-29 13:44] LABS: ALBUMIN 4.1 g/dL (3.4-5.0); ALBUMIN/GLOBULIN RATIO 1.2 (1.0-1.7); TOTAL BILIRUBIN 0.7 mg/dL (0.2-1.0); TOTAL PROTEIN 7.4 g/dL (6.4-8.2)
[2016-12-29] MEDS ORDERED: ACETAMINOPHEN 325 MG TABLET. PO PRN ×2 (14:45→15:15)
[2016-12-29] MEDS ORDERED: ONDANSETRON PF 4 MG/2 ML VIAL. IV PRN ×2 (14:45→15:15)
[2016-12-29] MEDS ORDERED: hydrALAZINE 20 MG/ML VIAL. IVP PRN (15:15)
[2016-12-29] MEDS ORDERED: HYDROCODONE/APAP 5/325MG TABLET. PO PRN (15:15)
[2016-12-29] MEDS ORDERED: NICOTINE 21MG PATCH. TD PRN (15:15)
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
[2016-12-29] MEDS: ENOXAPARIN 40 MG/0.4 ML DISP.SYRIN. SQ SCH ×2 (15:30→23:01)
[2016-12-29 15:40] VITALS: BP 145/103
--- NOTE | 2016-12-29 15:42 | ACF ---
Admission Forms Criteria HEADACHES Clinical Indications for Admission to Inpatient Care (Place 'X' for any and all applicable criteria): Admission is indicated for ANY ONE of the following(1)(2)(3)(4): [X]I. Inpatient admission required rather than observational care (Also use Headaches: Observation Care as appropriate) because of ANY ONE of the following: [ ]a) Severe pain requiring acute inpatient management [ ]b) Altered mental status that is severe or persistent [ ]c) Vomiting or dehydration that is severe or persistent [ ]d) New-onset focal neurologic deficit that is severe or persistent [ ]e) Hypertension requiring inpatient treatment [ ]f) Severe (new) neurologic findings requiring inpatient care as indicated by ANY ONE of following(9)(10): [ ]1) Papilledema [ ]2) Cerebral edema [ ]3) Mass effect on CT scan [ ]4) Cerebral bleeding, ischemia, or vasospasm(16) [ ]5) Hydrocephalus(17) [ ]6) Uncontrolled seizures [ ]g) IV infusion of anticoagulation, platelet inhibitors vasoactive, or antiarrhythmic medication. [ ]h) Cerebral bleeding, hydrocephalus, or vasospasm monitoring (16) [ ]i) Increased intracranial pressure or cerebral edema monitoring (17) [X]j) Other condition, treatment or monitoring requiring inpatient admission [ ]II. Unruptured but threatening aneurysm or vascular malformation [ ]III. Venous sinus thrombosis [ ]IV. Increased intracranial pressure [ ]V. Cerebral spinal fluid leak with decreased intracranial pressure [ ]. Medication-overuse headache that has failed all outpatient management options [ ]VII. Vasculitis (eg, giant cell (temporal) arteritis, central nervous system vasculitis) requiring IV corticosteroids, IV antithrombotic therapy, or inpatient monitoring (eg, visual symptoms or findings, other ischemic manifestations)[A](10)(11) Extended stay beyond goal length of stay may be needed for (27): [ ]a) Intractable migraine [ ]b) Subarachnoid or intracranial hemorrhage [ ]c) Malignant hypertension [ ]d) Detoxification from drug withdrawal in medication-overuse headache (29) The original [facility] content created by Corrine Corona has been revised. The portions of the content which have been revised are identified through the use of italic text or in bold, and Corrine Corona has neither reviewed nor approved the modified material.All other unmodified content is copyright [facility]. Please see references footnoted in the original [facility] edition 2016 Admission Criteria Met?: Yes VALDEZ LANG Dec 29, 2016 15:42
[2016-12-29] MEDS: HYDROCHLOROTHIAZIDE 25 MG TABLET PO SCH (16:00)
[2016-12-29] MEDS ORDERED: ASPIRIN ENTERIC COATED 81 MG TABLET.DR. PO SCH (16:00)
[2016-12-29] MEDS ORDERED: TRAMADOL 50 MG TABLET. PO PRN (16:15)
[2016-12-29] MEDS ORDERED: FENTANYL PF 100 MCG/2 ML VIAL. IV PRN (16:15)
[2016-12-29] MEDS: GABAPENTIN 100 MG CAPSULE. PO SCH ×2 (17:12→23:00)
[2016-12-29] MEDS: LISINOPRIL 10 MG TABLET PO SCH (17:12)
--- NOTE | 2016-12-29 17:14 | PDOC2 ---
NEUROLOGY CONSULT Date of Admission Date of Admission DATE: 12/29/16 TIME: 17:05 Reason for Consult Reason for Consult: IMPRESSION: Numbness in right UE and LE x 1 day. Headaches. HTN DM COPD TIA, Hx Schizophrenia. Smoking. Left knee pain Morbid obesity. RECOMMENDATIONS/PLAN: ASA 325 mg daily. Brain MRI w/o contrast. Lipid panel in am. Lab: ESR, TSH Smoking cessation. Weight reduction. HISTORY OF THE PRESENT ILLNESS: 61-y-old AA female patient with above medical diseases developed symptoms of right side numbness as she stated from her right side of head down to her right UE and LE for 1 day, so came to the ER of [facility] with concerns of CVA. PAST MEDICAL HISTORY: Please see above. PAST SURGERY HISTORY: Tonsillectomy ALLERGY: Unknown MEDICATIONS: Refer to [facility] HISTORY: Non contributory. SOCIAL HISTORY: Lives at home. She smokes 1 pack of cigarettes a day for 42 years. She drinks occasionally. She uses Marijuana from time to time. REVIEW OF SYSTEMS: Constitutional: No malnutrition, weight loss, cachexia. Head: No traumatic brain or head injury. Skin: No edema, or rash. Ear: No infection, tinnitus. Eyes: No vision loss or color blindness. Nose: No bleeding or purulent discharges. Hearing: No hearing decrease. Neck: No injury. Breast: No history of cancer, masses,or discharges. Cardiac: HTN, HLD. Pulmonary: No COPD. GI: No GI ulcer, GI bleeding. Urinary/genital: UTI. Endocrinologic: Diabetes Mellitus, morbid obesity. Skeletomuscular: No muscular atrophy, deformity. Neurological: see HP. Psychiatric: Denies drug use/abuse. Otherwise, not -zmdjx review of systems. PHYSICAL EXAMINATION: General appearance is in subacute distress. HEENT: Normocephalic and nontraumatic. Eyes, nose, ears, and throat are unremarkable. Neck is supple. No lymphadenopathy. No bruits are heard over the carotid artery. No crepitus. Cardiovascular: S1, S2, regular rate and rhythm. Pulmonary: Clear to auscultation bilaterally. Abdomen: Bowel sounds are positive. Abdomen is soft, nontender, and nondistended. Extremities: No rash, lesions, or edema. No restriction of range of motion NEUROLOGICAL EXAMINATION: Alert Oriented to time, place and person. PERRL. EOMI. CN: no focal findings. Muscle tone: within normal. Muscle strength: 5 UE, 4+ LE DTR: 1 due to obesity Plantar reflex: Flexor response bilaterally Gait: not examined in bed. Sensory exam: no abnormal findings. No obvious cerebellar signs elicited. F-T-N test fine. Current Medications Current Medications Current Medications Ondansetron HCl (Zofran) 4 mg PRN Q8HRS PRN IV NAUSEA/VOMITING; Start 12/29/16 at 14:45; Stop 12/30/16 at 14:44 Acetaminophen (Tylenol) 650 mg PRN Q4HRS PRN PO FEVER; Start 12/29/16 at 14:45 ; Stop 12/30/16 at 14:44 Aspirin (Ecotrin) 81 mg DAILY08 PO ; Start 12/29/16 at 16:00 Cyclobenzaprine HCl (Flexeril) 10 mg TID PO ; Start 12/29/16 at 21:00 Hydrochlorothiazide (Hydrodiuril) 25 mg DAILY06 PO ; Start 12/29/16 at 16:00 Lisinopril (Prinivil) 10 mg DAILY PO ; Start 12/30/16 at 09:00; Stop 12/30/16 at 09:00; Status DC Cetirizine HCl (Zyrtec) 10 mg DAILY PO ; Start 12/30/16 at 09:00 Lisinopril (Prinivil) 20 mg DAILY PO ; Start 12/29/16 at 16:00 Acetaminophen (Tylenol) 650 mg PRN Q6HRS PRN PO MILD PAIN / TEMP; Start at 15:15 Ondansetron HCl (Zofran) 4 mg PRN Q6HRS PRN IV NAUSEA/VOMITING 1ST CHOICE; Start 12/29/16 at 15:15 Acetaminophen/ Hydrocodone Bitart (Lortab 5/325) 1 tab PRN Q4HRS PRN PO PAIN; Start 12/29/16 at 15:15; Status UNV Hydralazine HCl (Apresoline) 10 mg PRN Q4HRS PRN IVP ELEVATED BP, SEE COMMENTS ; Start 12/29/16 at 15:15 Nicotine (Nicoderm Cq 21mg) 1 patch PRN DAILY PRN TD SMOKING CESSATION; Start 12/29/16 at 15:15 Enoxaparin Sodium (Lovenox 40mg Syringe) 40 mg Q12HR SQ ; Start 12/29/16 at 15: 30 Gabapentin (Neurontin) 100 mg TID PO ; Start 12/29/16 at 16:00 Fentanyl Citrate (Fentanyl 2ml Vial) 25 mcg PRN Q2HR PRN IV PAIN; Start at 16:15 Tramadol HCl (Ultram) 50 mg PRN Q6HRS PRN PO PAIN; Start 12/29/16 at 16:15; Status UNV Active Scripts Active Cyclobenzaprine Hcl 10 Mg Tablet 1 Tab PO QHS Claritin (Loratadine) 10 Mg Tablet 10 Mg PO DAILY Reported Aspir 81 (Aspirin) 81 Mg Tablet.dr 81 Mg PO Lisinopril 10 Mg Tablet 10 Mg PO Flexgen Tablet (Rutin/Hesp/Bioflav/C/Herb#196) 1 Each Tablet 1 Each PO Loratadine 10 Mg Tablet 10 Mg PO DAILY06 Hydrochlorothiazide Tablet (Hydrochlorothiazide) 25 Mg Tablet 25 Mg PO DAILY06 Allergies Allergies: Coded Allergies: codeine (Verified Allergy, Severe, anaphylactic reaction, 02/26/14) Penicillins (Verified Allergy, Intermediate, 12/14/16) Sulfa (Sulfonamide Antibiotics) (Verified Allergy, Unknown, 02/26/14) erythromycin base (Verified Allergy, Unknown, 02/26/14) Vitals VITALS Vital Signs Date Time Temp Pulse Resp B/P Pulse Ox O2 Delivery O2 Flow Rate FiO2 12/29/16 15:40 97.7 99 18 145/103 100 Room Air 97.7 Labs Labs Laboratory Tests Test 12/29/16 12:30 12/29/16 13:10 White Blood Count 5.8x10^3/uL (4.0-11.0) Red Blood Count 4.66x10^6/uL (3.50-5.40) Hemoglobin 13.1g/dL (12.0-15.5) Hematocrit 40.2% (36.0-47.0) Mean Corpuscular Volume 86fL (79-100) Mean Corpuscular Hemoglobin 28pg (25-35) Mean Corpuscular Hemoglobin Concent 33g/dL (31-37) Red Cell Distribution Width 13.9% (11.5-14.5) Platelet Count 184x10^3/uL (140-400) Neutrophils (%) (Auto) 48% (31-73) Lymphocytes (%) (Auto) 42% (24-48) Monocytes (%) (Auto) 8% (0-9) Eosinophils (%) (Auto) 2% (0-3) Basophils (%) (Auto) 1% (0-3) Neutrophils # (Auto) 2.8x10^3uL (1.8-7.7) Lymphocytes # (Auto) 2.4x10^3/uL (1.0-4.8) Monocytes # (Auto) 0.4x10^3/uL (0.0-1.1) Eosinophils # (Auto) 0.1x10^3/uL (0.0-0.7) Basophils # (Auto) 0.1x10^3/uL (0.0-0.2) Prothrombin Time 13.6SEC (11.7-14.0) Prothromb Time International Ratio 1.1 (0.8-1.1) Activated Partial Thromboplast Time 26SEC (24-38) Sodium Level 141mmol/L (136-145) Potassium Level 4.0mmol/L (3.5-5.1) Chloride Level 103mmol/L (98-107) Carbon Dioxide Level 29mmol/L (21-32) Anion Gap 9 (6-14) Blood Urea Nitrogen 10mg/dL (7-20) Creatinine 0.9mg/dL (0.6-1.0) Estimated GFR (Cockcroft-Gault) 77.5 BUN/Creatinine Ratio 11 (6-20) Glucose Level 93mg/dL (70-99) Calcium Level 9.2mg/dL (8.5-10.1) Total Bilirubin 0.7mg/dL (0.2-1.0) Aspartate Amino Transf (AST/SGOT) 29U/L (15-37) Alanine Aminotransferase (ALT/SGPT) 27U/L (14-59) Alkaline Phosphatase 65U/L (46-116) Troponin I Quantitative < 0.017ng/mL (0.000-0.055) Total Protein 7.4g/dL (6.4-8.2) Albumin 4.1g/dL (3.4-5.0) Albumin/Globulin Ratio 1.2 (1.0-1.7) Urine Collection Type Unknown Urine Color Yellow Urine Clarity Clear Urine pH 6.5 Urine Specific [place] 1.010 Urine Protein Negativemg/dL (NEG-TRACE) Urine Glucose (UA) Negativemg/dL (NEG) Urine Ketones (Stick) Negativemg/dL (NEG) Urine Blood Negative (NEG) Urine Nitrite Negative (NEG) Urine Bilirubin Negative (NEG) Urine Urobilinogen Dipstick 0.2mg/dL (0.2 mg/dL) Urine Leukocyte Esterase Negative (NEG) Urine RBC 0/HPF (0-2) Urine WBC 0/HPF (0-4) Urine Squamous Epithelial Cells Few/LPF Urine Bacteria Few/HPF (0-FEW) Urine Opiates Screen Neg (NEG) Urine Methadone Screen Neg (NEG) Urine Barbiturates Neg (NEG) Urine Phencyclidine Screen Neg (NEG) Urine Amphetamine/Methamphetamine Neg (NEG) Urine Benzodiazepines Screen Neg (NEG) Urine Cocaine Screen Neg (NEG) Urine Cannabinoids Screen Neg (NEG) Urine Ethyl Alcohol Neg (NEG) Laboratory Tests Test 12/29/16 12:30 12/29/16 13:10 White Blood Count 5.8x10^3/uL (4.0-11.0) Red Blood Count 4.66x10^6/uL (3.50-5.40) Hemoglobin 13.1g/dL (12.0-15.5) Hematocrit 40.2% (36.0-47.0) Mean Corpuscular Volume 86fL (79-100) Mean Corpuscular Hemoglobin 28pg (25-35) Mean Corpuscular Hemoglobin Concent 33g/dL (31-37) Red Cell Distribution Width 13.9% (11.5-14.5) Platelet Count 184x10^3/uL (140-400) Neutrophils (%) (Auto) 48% (31-73) Lymphocytes (%) (Auto) 42% (24-48) Monocytes (%) (Auto) 8% (0-9) Eosinophils (%) (Auto) 2% (0-3) Basophils (%) (Auto) 1% (0-3) Neutrophils # (Auto) 2.8x10^3uL (1.8-7.7) Lymphocytes # (Auto) 2.4x10^3/uL (1.0-4.8) Monocytes # (Auto) 0.4x10^3/uL (0.0-1.1) Eosinophils # (Auto) 0.1x10^3/uL (0.0-0.7) Basophils # (Auto) 0.1x10^3/uL (0.0-0.2) Prothrombin Time 13.6SEC (11.7-14.0) Prothromb Time International Ratio 1.1 (0.8-1.1) Activated Partial Thromboplast Time 26SEC (24-38) Sodium Level 141mmol/L (136-145) Potassium Level 4.0mmol/L (3.5-5.1) Chloride Level 103mmol/L (98-107) Carbon Dioxide Level 29mmol/L (21-32) Anion Gap 9 (6-14) Blood Urea Nitrogen 10mg/dL (7-20) Creatinine 0.9mg/dL (0.6-1.0) Estimated GFR (Cockcroft-Gault) 77.5 BUN/Creatinine Ratio 11 (6-20) Glucose Level 93mg/dL (70-99) Calcium Level 9.2mg/dL (8.5-10.1) Total Bilirubin 0.7mg/dL (0.2-1.0) Aspartate Amino Transf (AST/SGOT) 29U/L (15-37) Alanine Aminotransferase (ALT/SGPT) 27U/L (14-59) Alkaline Phosphatase 65U/L (46-116) Troponin I Quantitative < 0.017ng/mL (0.000-0.055) Total Protein 7.4g/dL (6.4-8.2) Albumin 4.1g/dL (3.4-5.0) Albumin/Globulin Ratio 1.2 (1.0-1.7) Urine Collection Type Unknown Urine Color Yellow Urine Clarity Clear Urine pH 6.5 Urine Specific Belen 1.010 Urine Protein Negativemg/dL (NEG-TRACE) Urine Glucose (UA) Negativemg/dL (NEG) Urine Ketones (Stick) Negativemg/dL (NEG) Urine Blood Negative (NEG) Urine Nitrite Negative (NEG) Urine Bilirubin Negative (NEG) Urine Urobilinogen Dipstick 0.2mg/dL (0.2 mg/dL) Urine Leukocyte Esterase Negative (NEG) Urine RBC 0/HPF (0-2) Urine WBC 0/HPF (0-4) Urine Squamous Epithelial Cells Few/LPF Urine Bacteria Few/HPF (0-FEW) Urine Opiates Screen Neg (NEG) Urine Methadone Screen Neg (NEG) Urine Barbiturates Neg (NEG) Urine Phencyclidine Screen Neg (NEG) Urine Amphetamine/Methamphetamine Neg (NEG) Urine Benzodiazepines Screen Neg (NEG) Urine Cocaine Screen Neg (NEG) Urine Cannabinoids Screen Neg (NEG) Urine Ethyl Alcohol Neg (NEG) BEN PAUL MD Dec 29, 2016 17:14
[2016-12-29] MEDS ORDERED: AMLO10TA2 PO (17:28)
[2016-12-29] MEDS ORDERED: BRIM5DRO3 EACHEYE (17:28)
[2016-12-29] MEDS ORDERED: CARV6.252 PO (17:28)
[2016-12-29] MEDS ORDERED: LATA2.5D3 EACHEYE (17:28)
[2016-12-29 19:00] VITALS: BP 152/94
[2016-12-29 23:00] VITALS: BP 146/67
[2016-12-29] MEDS: CYCLOBENZAPRINE 10 MG TABLET. PO SCH (23:00)
[2016-12-30 03:05] VITALS: BP 139/42
[2016-12-30 04:45] LABS: BASO % 1 % (0-3); EOS % 2 % (0-3); HEMOGLOBIN 12.6 g/dL (12.0-15.5); LYMPH % 37 % (24-48); MEAN CORPUSCULAR HEMOGLOBIN 29 pg (25-35); MEAN CORPUSCULAR HGB CONC 32 g/dL (31-37); MEAN CORPUSCULAR VOLUME 88 fL (79-100); MONO % 9 % (0-9); NEUT % 52 % (31-73); PLATELET COUNT 171 x10^3/uL (140-400); RED BLOOD COUNT 4.41 x10^6/uL (3.50-5.40); WHITE BLOOD COUNT 5.4 x10^3/uL (4.0-11.0)
[2016-12-30 05:21] LABS: CREATININE 0.9 mg/dL (0.6-1.0); GFR 77.5; POTASSIUM 4.3 mmol/L (3.5-5.1)
[2016-12-30 05:41] LABS: CHOLESTEROL/HDL RATIO 3.8
[2016-12-30] MEDS: HYDROCHLOROTHIAZIDE 25 MG TABLET PO SCH (06:42)
[2016-12-30 07:30] VITALS: BP 109/74
[2016-12-30] MEDS ORDERED: ASPIRIN ENTERIC COATED 325 MG TABLET.DR. PO SCH (08:00)
[2016-12-30] MEDS: ENOXAPARIN 40 MG/0.4 ML DISP.SYRIN. SQ SCH (09:00)
[2016-12-30] MEDS ORDERED: CETIRIZINE HCL 10 MG TABLET PO SCH ×2 (09:00→13:00)
[2016-12-30] MEDS ORDERED: LISINOPRIL 10 MG TABLET PO SCH (09:00)
[2016-12-30] MEDS: CYCLOBENZAPRINE 10 MG TABLET. PO SCH ×2 (09:14→14:52)
[2016-12-30] MEDS: GABAPENTIN 100 MG CAPSULE. PO SCH ×2 (09:15→14:53)
[2016-12-30] MEDS: LISINOPRIL 10 MG TABLET PO SCH (09:15)
[2016-12-30 10:32] VITALS: BP 127/74
--- NOTE | 2016-12-30 11:47 | RAD ---
PROCEDURE Brain MRI without contrast. HISTORY Right arm weakness. Headaches. TECHNIQUE Multiplanar and multi sequence magnetic resonance imaging of the brain was performed without contrast. COMPARISON None. FINDINGS The exam is limited due to motion. There is no restricted diffusion to suggest acute or subacute infarction. There is no susceptibility effect to suggest hemorrhage. There is no mass effect or midline shift. There is no hydrocephalus. There are few tiny foci of signal change within the cerebral white matter, a nonspecific finding which may be artifactual. No orbital lesion is seen. The paranasal sinuses are unremarkable. There is a tiny amount of mastoid fluid. There are normal flow voids within the cerebral vessels. IMPRESSION 1. No acute intracranial finding. 2. Few foci of signal change within the cerebral white matter, a nonspecific finding which may be artifactual or due to chronic small vessel disease or chronic migraine headaches. 3. Limited exam due to motion. Electronically signed by: Loretta Rollins (Dec 30, 2016 11:46:33)
--- NOTE | 2016-12-30 12:09 | RAD ---
PROCEDURE Cervical spine MRI without contrast. HISTORY Neck pain and right upper extremity pain. TECHNIQUE Multiplanar and multi sequence magnetic resonance imaging of the cervical spine was performed without contrast. COMPARISON None. FINDINGS The exam is limited due to motion. There is straightening of cervical lordosis. There is no significant listhesis. The vertebral bodies are normal in height. No suspicious osseous lesion is seen. No spinal cord lesion is seen. At C2-C3, there is a shallow posterior central to left paracentral disc protrusion. There is mild endplate remodeling. There is mild facet arthropathy. There is minimal right foraminal stenosis. At C3-C4, there is mild endplate remodeling. There is mild facet arthropathy. There is no stenosis. At C4-C5, there is a broad-based posterior central disc protrusion superimposed on a disc bulge and endplate remodeling. There is mild facet arthropathy. There is uncovertebral arthropathy. There is suspected mild bilateral foraminal stenosis. At C5-C6, there is a broad-based posterior central disc protrusion superimposed on a disc bulge and endplate remodeling. There is mild facet arthropathy. There is uncovertebral arthropathy. There is suspected mild right greater left foraminal stenosis. At C6-C7, there is a right paracentral to extra foraminal disc protrusion superimposed on a disc bulge and endplate remodeling. There is mild facet arthropathy. There is uncovertebral arthropathy. There is suspected moderate right and mild left foraminal stenosis. IMPRESSION 1. Significantly limited exam due to motion. 2. Multilevel degenerative changes, described in detail above. Electronically signed by: Loretta Rollins (Dec 30, 2016 12:08:32)
--- NOTE | 2016-12-30 12:31 | RAD ---
PROCEDURE Lumbar spine MRI without contrast. HISTORY Lower back pain and lower extremity radiculopathy and numbness. TECHNIQUE Multiplanar and multi sequence magnetic resonance imaging of the lumbar spine was performed without contrast. COMPARISON None. FINDINGS There is no listhesis. The vertebral bodies are normal in height. There is degenerative endplate remodeling with associated signal change at L5-S1. No suspicious osseous lesion is seen. There is disc desiccation and decreased disc height at L5-S1. The conus terminates at T12-L1. At L1-L2 and L2-L3, there is mild bilateral facet arthropathy. There is no stenosis. At L3-L4 at L4-L5, there is a minimal disc bulge. There is mild facet arthropathy. There is minimal bilateral foraminal stenosis. At L5-S1, there are right greater than left foraminal to lateral disc protrusions superimposed on a disc bulge and endplate osteophytosis. There is mild facet arthropathy. There is moderate to severe right and moderate left foraminal stenosis with effacement of the exiting right greater than left L5 nerve roots. IMPRESSION 1. L5-S1 right greater than left foraminal to lateral disc protrusions superimposed on a disc bulge and endplate osteophytosis, resulting in moderate to severe right and moderate left foraminal stenosis with effacement of the exiting right greater than left L5 nerve roots. 2. Minimal to mild degenerative change within the remainder of the lumbar spine, without significant stenosis. Electronically signed by: Loretta Rollins (Dec 30, 2016 12:29:35)
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
[2016-12-30] MEDS ORDERED: BRIMONIDINE 0.2% OPHTH SOLUTION 5ML BOTTLE. OU SCH (13:00)
[2016-12-30] MEDS ORDERED: AMLODIPINE BESYLATE 10 MG TABLET PO SCH (13:00)
--- NOTE | 2016-12-30 13:16 | RAD ---
Exam performed: Single AP standing view bilateral knees. History: Left knee pain. Date of service: 12/30/16. Comparison: 3 views left knee from 08/19/15. Single AP standing view bilateral knees findings: Severe narrowing of the medial left tibiofemoral joint is noted. Periarticular sclerosis and subchondral cystic changes are noted. There is also minimal narrowing of the right medial tibiofemoral joint. There is no acute fracture or dislocation. No soft tissue swelling or foreign seen. Impression: Severe narrowing of the medial left tibiofemoral joint with periarticular sclerosis and subchondral cystic changes.
--- NOTE | 2016-12-30 13:51 | RAD ---
CT of the chest without contrast, 12/30/2016: History: Chest pain No IV contrast was administered for this exam as requested. There is mild calcific plaquing of the thoracic aorta without evidence of aneurysm. The heart is at the upper limits of normal in size. No mediastinal hemorrhage or adenopathy is evident. No pulmonary infiltrate or mass is seen. There is no evidence of pleural fluid or pneumothorax. There are mild scattered degenerative changes in the thoracic spine. IMPRESSION: No acute chest abnormality is detected.
[2016-12-30 14:35] VITALS: BP 107/64
--- NOTE | 2016-12-30 14:50 | DISCH ---
DISCHARGE INSTRUCTIONS Condition on Discharge Condition on Discharge: Stable Activity After Discharge Activity Instructions for Disc: No restrictions Diet after Discharge Diet after Discharge: Pérez Contacting the DR. after DC Call your doctor for: Concerns you may have Follow-Up Follow up with: PCP in 1-2 weeks Follow Up With: [facility] [place] REGGIE MARQUEZ MD Dec 30, 2016 14:50
[2016-12-30] MEDS ORDERED: LISI10TA2 PO (14:53)
[2016-12-30] MEDS ORDERED: GABA-585 PO (14:53)
[2016-12-30] MEDS ORDERED: CARVEDILOL 6.25 MG TABLET PO SCH (17:00)
--- NOTE | 2016-12-30 19:39 | PDOC ---
PROGRESS NOTES Assessment Assessment Numbness in right UE and LE x 1 day before admission. Headaches, resolved. HTN DM COPD TIA, Hx Schizophrenia. Smoking. Left knee pain Morbid obesity. No evidence of acute CVA this time. RECOMMENDATIONS/PLAN: ASA 325 mg daily. Treat medical diseases. Smoking cessation. Weight reduction. FU with PCP. FU with Neurology as needed. HISTORY OF THE PRESENT ILLNESS: 61-y-old AA female patient with above medical diseases developed symptoms of right side numbness as she stated from her right side of head down to her right UE and LE for 1 day, so came to the ER of [facility] with concerns of CVA. PAST MEDICAL HISTORY: Please see above. PAST SURGERY HISTORY: Tonsillectomy ALLERGY: Unknown MEDICATIONS: Refer to [facility] HISTORY: Non contributory. SOCIAL HISTORY: Lives at home. She smokes 1 pack of cigarettes a day for 42 years. She drinks occasionally. She uses Marijuana from time to time. REVIEW OF SYSTEMS: Constitutional: No malnutrition, weight loss, cachexia. Head: No traumatic brain or head injury. Skin: No edema, or rash. Ear: No infection, tinnitus. Eyes: No vision loss or color blindness. Nose: No bleeding or purulent discharges. Hearing: No hearing decrease. Neck: No injury. Breast: No history of cancer, masses,or discharges. Cardiac: HTN, HLD. Pulmonary: No COPD. GI: No GI ulcer, GI bleeding. Urinary/genital: UTI. Endocrinologic: Diabetes Mellitus, morbid obesity. Skeletomuscular: No muscular atrophy, deformity. Neurological: see HP. Psychiatric: Denies drug use/abuse. Otherwise, not [id number] review of systems. PHYSICAL EXAMINATION: General appearance is in no acute distress. HEENT: Normocephalic and nontraumatic. Eyes, nose, ears, and throat are unremarkable. Neck is supple. No lymphadenopathy. No bruits are heard over the carotid artery. No crepitus. Cardiovascular: S1, S2, regular rate and rhythm. Pulmonary: Clear to auscultation bilaterally. Abdomen: Bowel sounds are positive. Abdomen is soft, nontender, and nondistended. Extremities: No rash, lesions, or edema. No restriction of range of motion NEUROLOGICAL EXAMINATION: Alert Oriented to time, place and person. PERRL. EOMI. CN: no focal findings. Muscle tone: within normal. Muscle strength: 5 UE, 4+ LE DTR: 1 due to obesity Plantar reflex: Flexor response bilaterally Gait: at her baseline level. Sensory exam: no abnormal findings. No obvious cerebellar signs elicited. F-T-N test fine. Objective Objective Vital Signs Date Time Temp Pulse Resp B/P Pulse Ox O2 Delivery O2 Flow Rate FiO2 12/30/16 14:35 97.6 96 18 107/64 99 Room Air 97.6 Intake and Output 12/30/16 07:00 Intake Total 1840 ml Output Total 300 ml Balance 1540 ml Intake Oral 1840 ml Output Urine Total 300 ml Vitals Signs Vitals VS - Last 72 Hours, by Label Date Time Temp Pulse Resp B/P Pulse Ox O2 Delivery O2 Flow Rate FiO2 12/30/16 14:35 97.6 96 18 107/64 99 Room Air 97.6 12/30/16 13:00 96 107/64 12/30/16 10:32 97.5 94 18 127/74 97 Room Air 97.5 12/30/16 09:15 95 122/73 12/30/16 08:25 Room Air 12/30/16 07:30 97.5 95 18 109/74 94 Room Air 97.5 12/30/16 03:05 97.7 103 20 139/42 96 Room Air 97.7 12/29/16 23:00 97.7 105 20 146/67 95 Room Air 97.7 12/29/16 20:00 Room Air 12/29/16 19:00 97.7 99 20 152/94 95 Room Air 97.7 12/29/16 17:12 99 145/103 12/29/16 15:40 97.7 99 18 145/103 100 Room Air 97.7 12/29/16 15:40 97.7 99 18 145/103 100 Room Air 97.7 12/29/16 15:00 98 20 133/83 96 12/29/16 14:00 94 20 120/87 95 12/29/16 13:00 90 15 161/97 97 12/29/16 12:30 98.8 98 19 151/92 96 Room Air 98.8 Laboratory Laboratory Laboratory Tests Test 12/29/16 20:25 12/30/16 03:47 Troponin I Quantitative < 0.017ng/mL (0.000-0.055) < 0.017ng/mL (0.000-0.055) White Blood Count 5.4x10^3/uL (4.0-11.0) Red Blood Count 4.41x10^6/uL (3.50-5.40) Hemoglobin 12.6g/dL (12.0-15.5) Hematocrit 39.0% (36.0-47.0) Mean Corpuscular Volume 88fL (79-100) Mean Corpuscular Hemoglobin 29pg (25-35) Mean Corpuscular Hemoglobin Concent 32g/dL (31-37) Red Cell Distribution Width 14.0% (11.5-14.5) Platelet Count 171x10^3/uL (140-400) Neutrophils (%) (Auto) 52% (31-73) Lymphocytes (%) (Auto) 37% (24-48) Monocytes (%) (Auto) 9% (0-9) Eosinophils (%) (Auto) 2% (0-3) Basophils (%) (Auto) 1% (0-3) Neutrophils # (Auto) 2.8x10^3uL (1.8-7.7) Lymphocytes # (Auto) 2.0x10^3/uL (1.0-4.8) Monocytes # (Auto) 0.5x10^3/uL (0.0-1.1) Eosinophils # (Auto) 0.1x10^3/uL (0.0-0.7) Basophils # (Auto) 0.0x10^3/uL (0.0-0.2) Sodium Level 143mmol/L (136-145) Potassium Level 4.3mmol/L (3.5-5.1) Chloride Level 108mmol/L (98-107) Carbon Dioxide Level 26mmol/L (21-32) Anion Gap 9 (6-14) Blood Urea Nitrogen 15mg/dL (7-20) Creatinine 0.9mg/dL (0.6-1.0) Estimated GFR (Cockcroft-Gault) 77.5 Glucose Level 98mg/dL (70-99) Calcium Level 9.0mg/dL (8.5-10.1) Triglycerides Level 125mg/dL (0-150) Cholesterol Level 180mg/dL (0-200) LDL Cholesterol, Calculated 107mg/dL (0-100) VLDL Cholesterol, Calculated 25mg/dL (0-40) HDL Cholesterol 48mg/dL (40-60) Cholesterol/HDL Ratio 3.8 Vitamin B12 Level 321pg/mL (211-946) Medication Medications Current Medications Amlodipine Besylate (Norvasc) 10 mg DAILY PO ; Start 12/30/16 at 13:00; Stop 12/30 at 16:06; Status DC Aspirin (Ecotrin) 325 mg DAILYWBKFT PO Last administered on 12/30/16 09:15; Start 12/30/16 at 08:00; Stop 12/30/16 at 16:06; Status DC Brimonidine Tartrate (Alphagan) 1 drop BID OU ; Start 12/30/16 at 13:00; Stop 12/30/16 at 13:00; Status DC Brimonidine Tartrate (Alphagan) 1 drop DAILY OU ; Start 12/31/16 at 09:00; Stop 12/31/16 at 09:00; Status DC Carvedilol (Coreg) 6.25 mg BIDWMEALS PO ; Start 12/30/16 at 17:00; Stop 12/30/16 at 17:00; Status DC Cetirizine HCl (Zyrtec) 10 mg DAILY PO Last administered on 12/30/16 09:15; Start 12/30/16 at 09:00; Stop 12/30/16 at 16:06; Status DC Cetirizine HCl (Zyrtec) 10 mg DAILY PO ; Start 12/30/16 at 13:00; Status Cancel Cyclobenzaprine HCl (Flexeril) 10 mg TID PO Last administered on 12/30/16 14:52 ; Start 12/29/16 at 21:00; Stop 12/30/16 at 16:06; Status DC Latanoprost (Xalatan) 1 drop QHS OU ; Start 12/30/16 at 21:00; Stop 12/30/16 at 21 :00; Status DC Lisinopril (Prinivil) 10 mg DAILY PO ; Start 12/30/16 at 09:00; Stop 12/30/16 at 09:00; Status DC Comment Review of Relevant I have reviewed the following items ivy (where applicable) has been applied. BEN PAUL MD Dec 30, 2016 19:39
[2016-12-30] MEDS ORDERED: LATANOPROST 0.005% OPHTH SOLUTION 2.5ML BOTTLE. OU SCH (21:00)
[2016-12-30 23:14] LABS: VITAMIN D25(OH)TOTAL 5.9 ng/mL (30.0-100.0)
[2016-12-31] MEDS ORDERED: BRIMONIDINE 0.2% OPHTH SOLUTION 5ML BOTTLE. OU SCH (09:00)
--- NOTE | 2016-12-31 13:02 | CONS ---
DATE OF CONSULTATION: 12/30/2016 ATTENDING PHYSICIAN: Dr. Mckeon. The patient was seen at the request of Dr. Mckeon for rehab evaluation. HISTORY OF PRESENT ILLNESS: This is a 61-year-old female, right handed, on disability from chronic neck and back and knee pain. The patient lives in a high rise apartment, walks around using a walker or a cane. She started having chest pain with numbness in her right upper and lower extremities starting yesterday, was admitted through the Emergency Room. She had radiological studies including CAT scan of the brain, which failed to reveal any acute abnormalities. The patient was scheduled for MRI scan of the brain done today, which at present time failed to reveal any acute abnormality. It revealed chronic small vessel ischemic disease noted. The patient denies any specific injury or accident. She admits pain in her knees, especially left knee. The patient denies any trouble with her bowel or bladder control. PHYSICAL EXAMINATION: Today revealed a middle-aged female. She is alert, oriented to time, place, person and circumstance and follows commands appropriately, moves all 4 extremities voluntarily where she had 4+/5 grade muscle strength and deep tendon reflexes are decreased overall. She had slightly decreased touch and pinprick sensation in her right upper and lower extremities. She had tenderness to palpation over cervical, thoracic and lumbar paraspinal muscles extending over to sacroiliac joint area and to some extent over trochanteric bursa bilaterally. She had crepitus on range of motion of both knee joints with knee joint effusion, left side more than right side. She had painful limited movements of her cervical and lumbar spine. Straight leg raising test is negative bilaterally. She is independent with bed mobility and transfers not using proper body mechanics during mobility. She walks using a cane with somewhat antalgic gait. Her skin is intact at this time. ASSESSMENT: A middle-aged female with chronic neck and lower back pain, most probably from degenerative disk disease and degenerative joint disease of cervical, thoracic and lumbar vertebrae with right cervical and right lumbar radiculitis. No clinical evidence of ongoing lumbar radiculopathy, also painful degenerative joint disease of both knees, left side more than right side and patient with sudden onset of chest pain with right upper extremity numbness. RECOMMENDATIONS: To obtain a CT scan of the chest to make sure she does not have any problems and to obtain MRI scan of her neck and lumbar spine to determine the extent of her disk problems and to obtain standing x-rays of both knees to evaluate the extent of knee joint narrowing. I have reviewed with her a home program of physical modalities, relax stretching exercises and a proper body mechanics and isometric strengthening exercise to her knees, to consider trigger point injection to her left knee and to lower back. Dr. Mckeon, I appreciate asking me to participate in the care of this interesting patient. She can be discharged to home when medically stable with outpatient followup. SAIDA ESCOBAR MD DR: VANNA/stacia JOB#: [id number] / [id number]
[2017-01-05] MEDS ORDERED: CEPH-264 PO (05:59)
== END 2016-12-30 16:06 | disposition home or self-care (01) | DRG 103 ==
LOC: ER 12:15 → 6 SOUTH 13:55
PROVIDERS: ADMIT Internal Medicine; ATTEND Internal Medicine
DX: R51 Headache (principal); Z68.41 Body mass index [BMI] 40.0-44.9, adult; R25.2 Cramp and spasm; Z86.73 Personal history of transient ischemic attack (TIA), and cerebral infarction without residual deficits; J44.9 Chronic obstructive pulmonary disease, unspecified; I10 Essential (primary) hypertension; F20.9 Schizophrenia, unspecified; J45.909 Unspecified asthma, uncomplicated; F17.210 Nicotine dependence, cigarettes, uncomplicated; E66.01 Morbid (severe) obesity due to excess calories; M25.562 Pain in left knee; F12.90 Cannabis use, unspecified, uncomplicated; E11.9 Type 2 diabetes mellitus without complications; Z82.49 Family history of ischemic heart disease and other diseases of the circulatory system; Z88.0 Allergy status to penicillin; Z88.2 Allergy status to sulfonamides; Z88.8 Allergy status to other drugs, medicaments and biological substances; Z88.6 Allergy status to analgesic agent; Z91.041 Radiographic dye allergy status; Z79.82 Long term (current) use of aspirin; Z98.890 Other specified postprocedural states; Z79.899 Other long term (current) drug therapy
CPT/HCPCS: 36415; 70450; 70551; 71010; 71250; 72141; 72148; 73565; 80048; 80053; 80061; 81001; 82306; 82607; 84443; 84484; 85027; 85610; 85730; 93005; G0481; J1650; 99285-25

== ENCOUNTER 2017-01-22 10:55 | Inpatient (IN) | payer MEDICARE, OTHER ==
[~2017-01-22] VITALS: Ht 172.7 cm; Wt 120.0 kg
[~2017-01-22 10:55] MED LIST changes: +AMLO10TA2 PO; +BRIM5DRO3 EACHEYE; +CARV6.252 PO; +CEPH-264 PO; +GABA-585 PO; +LATA2.5D3 EACHEYE
--- NOTE | 2017-01-22 11:50 | EKG ---
[facility] [address] [place] [address] Test Date: 2017-01-22 Test Time: 11:13:45 Pat Name: DANY CHAVES Department: Room: Gender: F Parts Professional: : 1955 Requested By: EDDY STEVENS Order Number: [id number] Reading MD: Meri Welsh Measurements Intervals [place] Rate: 99 P: 43 ND: 162 QRS: -28 QRSD: 100 T: 28 QT: 338 QTc: 439 Interpretive Statements SINUS RHYTHM LEFTWARD AXIS CONSIDER LEFT VENTRICULAR HYPERTROPHY POSSIBLY ABNORMAL ECG RI6.01 Compared to ECG 12/29/2016 12:15:52 Left-axis deviation now present Electronically Signed On 01-24-2017 20:17:30 MANUFACTURING ENGINEERING PROFESSOR by Meri Welsh
[2017-01-22] MEDS ORDERED: ASPIRIN 81 MG TAB.CHEW PO ONE (12:00)
--- NOTE | 2017-01-22 12:05 | RAD ---
Portable chest, 01/22/2017: History: Chest pain Comparison is made to a study from 12/29/2016. The heart is at the upper limits of normal in size. There is calcific plaquing of the aorta. The pulmonary vascularity is normal. No pulmonary infiltrates are seen. There is no evidence of pleural fluid. There is a mild thoracic scoliosis with associated degenerative change. IMPRESSION: No acute cardiopulmonary abnormality is detected with no significant change since 12/29/2016.
[2017-01-22 12:17] LABS: BASO # 0.2 x10^3/uL (0.0-0.2); BASO % 2 % (0-3); EOS % 2 % (0-3); HEMATOCRIT 32.9 % (36.0-47.0); HEMOGLOBIN 10.7 g/dL (12.0-15.5); LYMPH # 2.3 x10^3/uL (1.0-4.8); LYMPH % 30 % (24-48); MEAN CORPUSCULAR HEMOGLOBIN 28 pg (25-35); MEAN CORPUSCULAR HGB CONC 33 g/dL (31-37); MEAN CORPUSCULAR VOLUME 87 fL (79-100); MONO % 5 % (0-9); NEUT % 61 % (31-73); PLATELET COUNT 330 x10^3/uL (140-400); RED BLOOD COUNT 3.77 x10^6/uL (3.50-5.40); RED CELL DISTRIBUTION WIDTH 14.3 % (11.5-14.5); WHITE BLOOD COUNT 7.7 x10^3/uL (4.0-11.0)
[2017-01-22 12:32] LABS: CALCIUM 9.4 mg/dL (8.5-10.1); CREATININE 0.7 mg/dL (0.6-1.0); GFR 103.6; POTASSIUM 4.5 mmol/L (3.5-5.1)
[2017-01-22 12:38] LABS: ALBUMIN 3.2 g/dL (3.4-5.0); DIRECT BILIRUBIN 0.1 mg/dL (0.0-0.2); TOTAL BILIRUBIN 0.4 mg/dL (0.2-1.0); TOTAL PROTEIN 7.6 g/dL (6.4-8.2)
--- NOTE | 2017-01-22 13:58 | PHYS DOC ---
Past Medical History Past Medical History: Asthma, Bipolar, COPD, Diabetes-Type II, Hypertension, Schizophrenia, TIA, Other Additional Past Medical Histor: chronic pain, obesity Past Surgical History: Tonsillectomy Alcohol Use: None Drug Use: None Adult General Chief Complaint Chief Complaint: CHEST PAIN HPI HPI 61-year-old female presenting to the emergency department today with substernal heaviness approximate 7 out of 10 nonradiating. Present since 4:00 this morning. It comes and goes and is without alleviating factors. She has a history of COPD type 2 diabetes hypertension. She denies any shortness of breath abdominal pain nausea or vomiting. Review of systems is negative for confusion lethargy cyanosis or neck pain or stiffness. Negative for abdominal pain nausea or diaphoresis. All other review of systems is negative unless otherwise noted in history of present illness. Review of Systems Review of Systems SEE ABOVE. Current Medications Current Medications Current Medications Medications (Trade) Dose Ordered Sig/Lupis Start Time Stop Time Status Last Admin Dose Admin Aspirin (Children'S Aspirin) 324 mg 1X ONCE 01/22/17 12:00 01/22/17 12:01 DC Allergies Allergies Allergies Coded Allergies Type Severity Reaction Last Updated Verified codeine Allergy Severe anaphylactic reaction 01/05/17 Yes Penicillins Allergy Intermediate 12/14/16 Yes Sulfa (Sulfonamide Antibiotics) Allergy Intermediate 01/05/17 Yes erythromycin base Allergy Intermediate 01/05/17 Yes Physical Exam Physical Exam Constitutional: Well developed, well nourished, no acute distress, non-toxic appearance. HENT: Normocephalic, atraumatic, bilateral external ears normal, oropharynx moist, no oral exudates, nose normal. [] Eyes: PERRLA, EOMI, conjunctiva normal, no discharge. [] Neck: Normal range of motion, no tenderness, supple, no stridor. [] Cardiovascular:Heart rate regular rhythm, no murmur [] Lungs & Thorax: Bilateral breath sounds clear to auscultation Abdomen: Bowel sounds normal, soft, no tenderness, no masses, no pulsatile masses. Skin: Warm, dry, no erythema, no rash. [] Back: No tenderness, no CVA tenderness. Extremities: No tenderness, no cyanosis, no clubbing, ROM intact, no edema. [] Neurologic: Alert and oriented X 3, normal motor function, normal sensory function, no focal deficits noted. [] Psychologic: Affect normal, judgement normal, mood normal. Current Patient Data Vital Signs Vital Signs Date Time Temp Pulse Resp B/P Pulse Ox O2 Delivery O2 Flow Rate FiO2 01/22/17 10:58 98.0 102 18 154/76 98 Room Air 98.0 Lab Values Laboratory Tests Test 01/22/17 12:00 White Blood Count 7.7x10^3/uL (4.0-11.0) Red Blood Count 3.77x10^6/uL (3.50-5.40) Hemoglobin 10.7g/dL (12.0-15.5) L Hematocrit 32.9% (36.0-47.0) L Mean Corpuscular Volume 87fL (79-100) Mean Corpuscular Hemoglobin 28pg (25-35) Mean Corpuscular Hemoglobin Concent 33g/dL (31-37) Red Cell Distribution Width 14.3% (11.5-14.5) Platelet Count 330x10^3/uL (140-400) Neutrophils (%) (Auto) 61% (31-73) Lymphocytes (%) (Auto) 30% (24-48) Monocytes (%) (Auto) 5% (0-9) Eosinophils (%) (Auto) 2% (0-3) Basophils (%) (Auto) 2% (0-3) Neutrophils # (Auto) 4.7x10^3uL (1.8-7.7) Lymphocytes # (Auto) 2.3x10^3/uL (1.0-4.8) Monocytes # (Auto) 0.4x10^3/uL (0.0-1.1) Eosinophils # (Auto) 0.1x10^3/uL (0.0-0.7) Basophils # (Auto) 0.2x10^3/uL (0.0-0.2) Sodium Level 141mmol/L (136-145) Potassium Level 4.5mmol/L (3.5-5.1) Chloride Level 103mmol/L (98-107) Carbon Dioxide Level 31mmol/L (21-32) Anion Gap 7 (6-14) Blood Urea Nitrogen 18mg/dL (7-20) Creatinine 0.7mg/dL (0.6-1.0) Estimated GFR (Cockcroft-Gault) 103.6 Glucose Level 108mg/dL (70-99) H Calcium Level 9.4mg/dL (8.5-10.1) Total Bilirubin 0.4mg/dL (0.2-1.0) Direct Bilirubin 0.1mg/dL (0.0-0.2) Aspartate Amino Transferase (AST) 27U/L (15-37) Alanine Aminotransferase (ALT) 27U/L (14-59) Alkaline Phosphatase 74U/L (46-116) Troponin I Quantitative < 0.017ng/mL (0.000-0.055) GS-Zyw-L-Type Natriuretic Peptide 51pg/mL (0-124) Total Protein 7.6g/dL (6.4-8.2) Albumin 3.2g/dL (3.4-5.0) L Lipase 144U/L (73-393) Laboratory Tests 01/22/17 12:00 Laboratory Tests 01/22/17 12:00 EKG EKG [] EKG shows sinus rhythm with a mildly tachycardic rate. [place] is leftward. Intervals show mild QRS prolongation. ST segments show an isolated less than 1 mm elevation without reciprocal depression in lead aVL. Radiology/Procedures Radiology/Procedures [] Course & Med Decision Making Course & Med Decision Making Pertinent Labs and Imaging studies reviewed. (See chart for details) [] 61-year-old female presenting the emergency department with intermittent chest pain. On presentation the patient's vital signs afebrile with mild tachycardia. Blood pressure mildly elevated. Otherwise unremarkable. Physical exam is unremarkable. Blood work was obtained. CBC shows mild anemia. Chemistry panel shows mildly low albumin mild elevation in glucose. Otherwise unremarkable. Negative troponin. Lipase within normal limits. On reevaluation the patient's pain improved. Due to the patient's heart score of 4 the patient was admitted for chest pain rule out. Dragon Disclaimer Dragon Disclaimer This electronic medical record was generated, in whole or in part, using a voice recognition dictation system. Departure Departure Impression: Primary Impression: Chest pain Disposition: 01 HOME, SELF-CARE Condition: STABLE Referrals: SUSANNA GARCIA (PCP) SHREE CARR MD Patient Instructions: Chest Pain (Nonspecific) EDDY STEVENS MD Jan 22, 2017 13:58
[2017-01-22] MEDS ORDERED: ONDANSETRON PF 4 MG/2 ML VIAL. IV PRN (14:00)
[2017-01-22] MEDS ORDERED: MORPHINE SULFATE 2 MG/ML DISP.SYRIN. IV PRN (14:00)
--- NOTE | 2017-01-22 14:50 | ACF ---
Admission Forms Criteria CHEST PAIN Clinical Indications for Admission to Inpatient Care (Place 'X' for any and all applicable criteria): Admission is indicated for chest pain and ANY ONE of the following(1)(2)(3)(4)(5 ): [ ]I. Angina with acute coronary syndrome (Also use Myocardial Infarction or Angina guideline) [ ]II. Hemodynamic instability [ ]III. Angina needing acute intervention as indicated by ALL of the following( 11)(12): [ ]a) Unstable angina is present as indicated by angina that is ANY ONE of the following: [ ]i) New onset [ ]ii) Nocturnal [ ]iii) Prolonged at rest [ ]iv) Progressive [ ]b) Angina warrants acute intervention as indicated by ANY ONE of the following: [ ]i) Recurrent angina (e.g, not responding as previously to treatment) [ ]ii) Angina at rest or with low-level activities despite initial medical therapy [ ]iii) New or presumably new ST-segment depression on ECG [ ]iv) Signs or symptoms of heart failure (eg, dyspnea, pulmonary edema) [ ]v) New or worsening mitral regurgitation [ ]vi) Hemodynamic instability [ ]vii) Dangerous arrhythmia (eg, sustained ventricular tachycardia) [ ]viii) History of percutaneous coronary intervention within 6 months [ ]ix) History of coronary artery bypass graft surgery [ ]x) JEFFREY risk score of 2 or greater[A] [ ]xi) History of Diabetes(14) [ ]xii) High-risk cardiac ischemia findings on noninvasive testing (e.g, echocardiogram, treadmill testing, nuclear scan) [ ]xiii) Chronic renal insufficiency (ie, estimated GFR less than 60 mL/min/1.732m) [ ]xiv) Left ventricular ejection fraction less than 40% [ ]IV. Evidence of OH (eg, cardiac biomarkers positive, ST-segment elevation on ECG) also use Myocardial Infarction Criteria Form. [ ]V. Pulmonary edema [ ]. Respiratory distress [ ]VII. Chest pain indicative of serious diagnosis other than coronary artery disease (eg, aortic dissection) [ ]VIII. Contraindications and/or Inappropriate clinical situations for Observational Care in patients with Chest Pain, when ANY ONE of the following is required: [ ]a) Patient with risk factor for pulmonary embolism, acute coronary syndrome and myocardial infarction (18) [ ]b) Patient with Pulmonary embolism require an average LOS of 4.3 days, therefore emergency department observation management is inappropriate 18,23 [ ]c) Painful condition/s in the elderly, have the highest rate of recidivism after emergency department observation management (10.8%) 20,21,22 [ ]d) Elevated cardiac biomarker requires intensive and exhaustive care (19) [X]IX. General contraindications and/or Inappropriate clinical situations for Observational Care in patients with Chest Pain, when ANY ONE of the following is required: [X]a) Prediction of prolongation of LOS based on ANY ONE of the following may be considered as a contraindication for observational care 2, 3, 4, 5, 6, 7, 8, 9, 10, 11 [ ]i) Age > 65 yrs. [ ]ii) Patient arriving by ambulance [ ]iii) Patient with high acuity [X]iv) Patient requiring vital sign monitoring [ ]v) Patient on IV medication [ ]b) Systolic blood pressures 180mmHg 3,12 [ ]c) Patient with altered mental status including delirium and other alteration of consciousness, (3) [ ]d) Patient whose discharge disposition will be to a [facility] home or rehabilitation home should not be managed in Emergency Department Observation Unit. CMS rule requires 3 days hospital stay before such placement. 3,13 [ ]e) Patient with failure to thrive due to broad array of etiologies 3,16,17 [ ]f) Inability to ambulate 3,14 Extended stay beyond goal length of stay may be needed for (1)(28): [ ]a) Specific condition diagnosed after evaluation (eg, pulmonary embolism, aortic dissection) [ ]b) Unstable angina [ ]c) Continued suspicion of acute coronary syndrome with inability to complete needed cardiac evaluation (eg, patient clinically unable to undergo stress testing) [ ]d) Myocardial infarction (Contents from ANGINA and CHEST PAIN clinical indications for admission to inpatient care have been integrated in this form) The original [facility] content created by [employer] has been revised. The portions of the content which have been revised are identified through the use of italic text or in bold, and [facility] has neither reviewed nor approved the modified material. All other unmodified content is copyright [facility]. Please see references footnoted in the original [facility] [employer] edition 2016 Admission Criteria Met?: Yes TERESITA BUSTAMANTE Jan 22, 2017 14:50
[2017-01-22 15:40] VITALS: BP 132/70
--- NOTE | 2017-01-22 15:53 | PDOC2 ---
CARDIAC CONSULT DATE OF CONSULT Date of Consult DATE: 01/22/17 TIME: 15:41 REASON FOR CONSULT Reason for Consult: Chest pain REFERRING PHYSICIAN Referring Physician: Rhonda SOURCE Source: Chart review, Patient HISTORY OF PRESENT ILLNESS HISTORY OF PRESENT ILLNESS This is a pleasant 61 yo female admitted for complains of chest pain. Reports waking up this AM around 0330 with retrosternal chest tightness lasting about 1 hour. Associated with jaw pain, SOA, diaphoresis, nausea. She took ASA. In addition she has been having frequent heartburn. She does CAD but no known LHC was done in the past. Currently she is CP free and no SOA. PAST MEDICAL HISTORY Cardiovascular: HTN Pulmonary: No pertinent hx, COPD (?) CENTRAL NERVOUS SYSTEM: TIA Heme/Onc: No pertinent hx Hepatobiliary: No pertinent hx Psych: Anxiety Musculoskeletal: Osteoarthritis, Other (chronic pain; cervical stenosis) Infectious disease: No pertinent hx ENT: No pertinent hx, Allergic Rhinitis, Other (glaucoma) Endocrine: Diabetes (bordeline) Dermatology: No pertinent hx PAST SURGICAL HISTORY Past Surgical History: Tonsillectomy FAMILY HISTORY Family History: Coronary Artery Disease (brother and mother) SOCIAL HISTORY Social History Smoke: <1 pack per day ALCOHOL: none Drugs: None Lives: Alone Domestic Violence: Neg ALLERGIES ALLERGIES: Coded Allergies: codeine (Verified Allergy, Severe, anaphylactic reaction, 01/05/17) TOLERATES HYDROCODONE Penicillins (Verified Allergy, Intermediate, 12/14/16) Sulfa (Sulfonamide Antibiotics) (Verified Allergy, Intermediate, 01/05/17) erythromycin base (Verified Allergy, Intermediate, 01/05/17) ROS Review of System 14 point ROS evaluated with pertinent positives noted per HPI PHYSICAL EXAM General: Alert, Oriented X3, Cooperative, No acute distress HEENT: Atraumatic, Mucous membr. moist/pink Lungs: Clear to auscultation, Normal air movement Heart: Regular rate, Normal S1, Normal S2, Other (distant heart sounds) Abdomen: Soft, No tenderness Extremities: No cyanosis, Other (2-3+ bilateral LE pitting edema) Skin: No breakdown, No significant lesion Neuro: Normal speech, Sensation intact Psych/Mental Status: Mental status NL, Mood NL MUSCULOSKELETAL: Osteoarthritic changes both hands VITALS VITALS Vital Signs Date Time Temp Pulse Resp B/P Pulse Ox O2 Delivery O2 Flow Rate FiO2 01/22/17 10:58 98.0 102 18 154/76 98 Room Air 98.0 LABS Lab: Laboratory Tests Test 01/22/17 12:00 White Blood Count 7.7x10^3/uL (4.0-11.0) Red Blood Count 3.77x10^6/uL (3.50-5.40) Hemoglobin 10.7g/dL (12.0-15.5) Hematocrit 32.9% (36.0-47.0) Mean Corpuscular Volume 87fL (79-100) Mean Corpuscular Hemoglobin 28pg (25-35) Mean Corpuscular Hemoglobin Concent 33g/dL (31-37) Red Cell Distribution Width 14.3% (11.5-14.5) Platelet Count 330x10^3/uL (140-400) Neutrophils (%) (Auto) 61% (31-73) Lymphocytes (%) (Auto) 30% (24-48) Monocytes (%) (Auto) 5% (0-9) Eosinophils (%) (Auto) 2% (0-3) Basophils (%) (Auto) 2% (0-3) Neutrophils # (Auto) 4.7x10^3uL (1.8-7.7) Lymphocytes # (Auto) 2.3x10^3/uL (1.0-4.8) Monocytes # (Auto) 0.4x10^3/uL (0.0-1.1) Eosinophils # (Auto) 0.1x10^3/uL (0.0-0.7) Basophils # (Auto) 0.2x10^3/uL (0.0-0.2) Sodium Level 141mmol/L (136-145) Potassium Level 4.5mmol/L (3.5-5.1) Chloride Level 103mmol/L (98-107) Carbon Dioxide Level 31mmol/L (21-32) Anion Gap 7 (6-14) Blood Urea Nitrogen 18mg/dL (7-20) Creatinine 0.7mg/dL (0.6-1.0) Estimated GFR (Cockcroft-Gault) 103.6 Glucose Level 108mg/dL (70-99) Calcium Level 9.4mg/dL (8.5-10.1) Total Bilirubin 0.4mg/dL (0.2-1.0) Direct Bilirubin 0.1mg/dL (0.0-0.2) Aspartate Amino Transf (AST/SGOT) 27U/L (15-37) Alanine Aminotransferase (ALT/SGPT) 27U/L (14-59) Alkaline Phosphatase 74U/L (46-116) Troponin I Quantitative < 0.017ng/mL (0.000-0.055) QP-Eoi-E-Type Natriuretic Peptide 51pg/mL (0-124) Total Protein 7.6g/dL (6.4-8.2) Albumin 3.2g/dL (3.4-5.0) Lipase 144U/L (73-393) ECHOCARDIOGRAM ECHOCARDIOGRAM <Conclusion> Normal left ventricle systolic function. Left ventricle ejection fraction estimated at 60%. No regional wall motion abnormalities. Transmitral Doppler flow pattern is Grade I-abnormal relaxation pattern. Doppler and Color Flow revealed trace tricuspid regurgitation. The PA pressure was estimated at 23 mmHg. There is no evidence of significant pericardial effusion. DATE: 02/27/14 1526 STRESS TEST STRESS TEST Conclusion 1. A small to medium, mild intensity, reversible perfusion defect is noted in the inferior lateral segments suggestive of ischemia 2. Left internal ejection fraction is 71% 3. Low to intermediate risk stress test. DATE: 03/07/14 1702 ASSESSMENT/PLAN ASSESSMENT/PLAN 1. Chest pain: initial troponin normal EKG no changes 2. CAD: no LHC in the past 3. DM2: borderline per pt. 4. HTN: controlled 5. Morbid obesity: BMI 40 6. NEAL: Awaiting new CPAP Recommendations 1. TTE today, MPI tomorrow 2. Continue with secondary prevention 3. TSH, lipid panel, trend troponin 4. Lifestyle modifications Problems: ROBERT TREVIZO APRN Jan 22, 2017 15:53
[2017-01-22] MEDS: GABAPENTIN 100 MG CAPSULE. PO SCH ×2 (16:30→20:32)
--- NOTE | 2017-01-22 16:47 | CARD ---
APPROVED REPORT EXAM: Two-dimensional and M-mode echocardiogram with Doppler and color Doppler. Other Information Quality : Good INDICATION Chest Pain 2D DIMENSIONS RVDd3.3 (2.9-3.5cm)Left Atrium(2D)3.4 (1.6-4.0cm) IVSd1.7 (0.7-1.1cm)Aortic Root(2D)3.3 (2.0-3.7cm) LVDd3.6 (3.9-5.9cm)LVOT Diameter2.2 (1.8-2.4cm) PWd1.5 (0.7-1.1cm)LVDs2.2 (2.5-4.0cm) FS (%) 30.0 %SV38.4 ml LVEF(%)60.0 (>50%) Aortic Valve AoV Peak Cordell.150.2cm/[place] Peak GR.9.0mmHg Mitral Valve MV E Mwpwgjdj11.5cm/sMV DECEL [id number] MV A Gydkwtog03.7cm/sE/A Ratio0.6 TDI Lateral E' P. V8.75cm/sMedial E' P. V6.31cm/s E/Lateral E'6.3E/Medial E'8.8 Tricuspid Valve TR P. Eiudeyay867ev/sRAP ADHOCWIW0klBu TR Peak Gr.79ttXpKYXA66irNu Pulmonary Vein S1 Pyxckwmx70.3cm/sS2 Vrkzenjp78.69cm/s D2 Hinfzfbi06.7cm/s LEFT VENTRICLE The left ventricle is normal size. There is mild to moderate concentric left ventricular hypertrophy. The left ventricular systolic function is normal and the ejection fraction is within normal range. T he Ejection Fraction is 60-65%. There is normal LV segmental wall motion. Transmitral Doppler flow pa ttern is Grade I-abnormal relaxation pattern. RIGHT VENTRICLE The right ventricle is normal size. The right ventricular systolic function is normal. ATRIA The left atrium size is normal. The right atrium size is normal. The interatrial septum is intact wit h no evidence for an atrial septal defect or patent foramen ovale as noted on 2-D or Doppler imaging. AORTIC VALVE The aortic valve is calcified but opens well. Doppler and Color Flow revealed no significant aortic r egurgitation. There is no significant aortic valvular stenosis. MITRAL VALVE The mitral valve is normal in structure and function. There is no evidence of mitral valve prolapse. There is no mitral valve stenosis. Doppler and Color-flow revealed trace mitral regurgitation. TRICUSPID VALVE The tricuspid valve is normal in structure and function. Doppler and Color Flow revealed trace to mil d tricuspid regurgitation. There is mild pulmonary hypertension. The PA pressure was estimated at 43 mmHg. There is no tricuspid valve stenosis. PULMONIC VALVE Doppler and Color Flow revealed trace pulmonic valvular regurgitation. There is no pulmonic valvular stenosis. GREAT VESSELS The aortic root is normal in size. The ascending aorta is normal in size. The IVC was not visualized. PERICARDIAL EFFUSION There is no evidence of significant pericardial effusion. Critical Notification Critical Value: No <Conclusion> The left ventricular systolic function is normal and the ejection fraction is within normal range. The Ejection Fraction is 60-65%. There is normal LV segmental wall motion. Doppler and Color Flow revealed trace to mild tricuspid regurgitation. There is mild pulmonary hypert ension. The PA pressure was estimated at 43 mmHg.
[2017-01-22] MEDS: CARVEDILOL 12.5 MG TABLET PO SCH (17:00)
[2017-01-22 19:00] VITALS: BP 128/61
--- NOTE | 2017-01-22 20:11 | HP ---
ADMIT DATE: 01/22/2017 CHIEF COMPLAINT: Chest pain. HISTORY OF PRESENT ILLNESS: The patient is a 61-year-old -Polish woman with schizophrenia, COPD and heart disease who presented to the Emergency Room after she had called 911 because of issues she had with the [facility]ci she currently resides in for IV antibiotic therapy. She apparently complained of substernal heaviness, 7/10, nonradiating, coming and going. She denies any associated symptoms with this. Apparently, she had issues with nursing care at [place] and felt not listened to, there. Her history is significant for a recently sustained wound in her right antecubital area where she had developed thrombophlebitis after a hospitalization. She relates that she actually ended up at [facility] initially unconscious. This apparently was related to the wound. She received wound care including wound VAC and was discharged for ongoing intravenous antibiotic therapy to [facility]. She was scheduled to be released tomorrow after completion of her IV antibiotics, with ongoing p.o. antibiotics for another week at least. PAST MEDICAL HISTORY: COPD, diabetes mellitus, question CAD, peripheral vascular disease status post TIA, schizophrenia. FAMILY HISTORY: Heart disease. SOCIAL HISTORY: [place], no ongoing toxic habits. ALLERGIES: PENICILLIN, SULFA, CODEINE AND ERYTHROMYCIN BASE. HOME MEDICATIONS: Reconciled with [facility]. REVIEW OF SYSTEMS: The patient denies any ongoing chest pain or related symptoms. She feels fairly well. She was a bit frustrated earlier after feeling that she was not listened to in the Emergency Room. She unfortunately discontinued the wound VAC. She is now quite calm. PHYSICAL EXAMINATION: VITAL SIGNS: From today show a blood pressure of 132/70, heart rate 99, respiratory rate is 18. She is afebrile. GENERAL: This is a morbidly obese -Polish woman, quite verbal, pleasant, alert and oriented, in no acute distress. HEENT: Shows no scleral icterus. NECK: Supple, without any JVD or lymphadenopathy. LUNGS: Clear anteriorly. CARDIOVASCULAR: Regular rate and rhythm. ABDOMEN: Obese, positive bowel sounds, organs could not be palpated. EXTREMITIES: Show 1+ edema around the ankles. SKIN: Warm, soft and dry without any rashes. NEUROLOGIC: She appears grossly intact. LABORATORY DATA: CBC with a WBC of 7.7, hemoglobin 10.7 with an MCV of 87, platelets of 330. BUN and creatinine of 18 and 0.7, normal electrolytes, normal LFTs. Albumin at 3.2. Initial troponin is negative. ProBNP low. IMAGING STUDIES: Chest x-ray in the Emergency Room shows no acute cardiopulmonary abnormality. ASSESSMENT AND PLAN: The patient is now admitted for rule out ACS. Cardiology has been consulted. She apparently has a history of abnormal wall motion in the past on echo. Echo will be repeated and probably she will undergo stress test in the morning. We will continue her home medications for the time being. A risk stratification with labs in the morning will be obtained as well. Her wound VAC has been discontinued. We will have wound nurse reevaluate and replace the wound VAC. We will continue to give p.o. antibiotics as prior intention. No acute sign of infections at this time. She will follow up as previously arranged next . She has glaucoma and is on eyedrops. We will continue those. For her psychiatric history, she is scheduled to follow up with [facility] on an outpatient basis. She is currently not on any medications. Should everything come out okay from a cardiac standpoint, she probably will be able to return to home tomorrow. REGGIE CHANCE MD DR: VINCE/nts JOB#: [id number] / [id number] DIAMANTE
[2017-01-22] MEDS ORDERED: DIVA250T4 PO (20:21)
[2017-01-22] MEDS ORDERED: CLON0.2T PO (20:21)
[2017-01-22] MEDS ORDERED: ASPI325T11 PO (20:21)
[2017-01-22] MEDS ORDERED: CARV25TA PO (20:21)
[2017-01-22] MEDS ORDERED: ACET325T9 PO (20:21)
[2017-01-22] MEDS: CEPHALEXIN 250 MG CAPSULE PO SCH (20:27)
[2017-01-22] MEDS ORDERED: CYCLOBENZAPRINE 10 MG TABLET. PO SCH (21:00)
[2017-01-22] MEDS ORDERED: LATANOPROST 0.005% OPHTH SOLUTION 2.5ML BOTTLE. OU SCH (21:00)
[2017-01-22 23:00] VITALS: BP 132/72
[2017-01-23 03:00] VITALS: BP 135/81
[2017-01-23] MEDS ORDERED: ALTEPLASE 2 MG VIAL INT CAT ONE (05:45)
[2017-01-23] MEDS ORDERED: HYDROCHLOROTHIAZIDE 25 MG TABLET PO SCH (06:00)
[2017-01-23] MEDS ORDERED: CETIRIZINE HCL 10 MG TABLET PO SCH (06:00)
[2017-01-23 07:00] VITALS: BP 155/85
[2017-01-23 07:11] LABS: CALCIUM 9.3 mg/dL (8.5-10.1); CREATININE 0.7 mg/dL (0.6-1.0); GFR 103.6; POTASSIUM 4.5 mmol/L (3.5-5.1)
[2017-01-23] MEDS ORDERED: ASPIRIN ENTERIC COATED 81 MG TABLET.DR. PO SCH ×2 (08:00)
[2017-01-23] MEDS ORDERED: AMLODIPINE BESYLATE 10 MG TABLET PO SCH (09:00)
[2017-01-23] MEDS ORDERED: NON FORMULARY ITEM (Loratadine (Claritin) 10 MG) PO SCH (09:00)
[2017-01-23] MEDS ORDERED: NON FORMULARY ITEM (Brimonidine Tartrate (Alphagan P) 1 DROP) EACHEYE SCH (09:00)
[2017-01-23] MEDS ORDERED: LISINOPRIL 20 MG TABLET PO SCH (09:00)
[2017-01-23] MEDS: GABAPENTIN 100 MG CAPSULE. PO SCH (09:00)
[2017-01-23] MEDS ORDERED: BRIMONIDINE 0.2% OPHTH SOLUTION 5ML BOTTLE. OU SCH (09:00)
[2017-01-23] MEDS: CEPHALEXIN 250 MG CAPSULE PO SCH (10:23)
[2017-01-23] MEDS: CARVEDILOL 12.5 MG TABLET PO SCH (10:24)
[2017-01-23 11:00] VITALS: BP 171/113
--- NOTE | 2017-01-23 11:08 | DISCH ---
DISCHARGE INSTRUCTIONS Condition on Discharge Condition on Discharge: Stable Activity After Discharge Activity Instructions for Disc: No restrictions Diet after Discharge Diet after Discharge: Cardiac Contacting the DR. after DC Call your doctor for: Concerns you may have Follow-Up Follow up with: Wound clinic as arranged Follow Up With: cardiology clinic for stress test REGGIE MARQUEZ MD Jan 23, 2017 11:08
[2017-01-23] MEDS ORDERED: REGADENOSON 0.4 MG/5 ML DISP.SYRIN. IV ONE (12:30)
[2017-01-23] MEDS ORDERED: ATORVASTATIN CALCIUM 40 MG TABLET. PO SCH (21:00)
--- NOTE | 2017-01-25 22:30 | DS ---
DATE OF DISCHARGE: 01/23/2017 CHIEF COMPLAINT: Chest pain. HOSPITAL COURSE: The patient is a 61-year-old -[place] woman with minor medical issues, schizophrenia, untreated, who is frequently admitted for various illnesses. She actually had called EMS while at [facility] as she felt care was not sufficient. She complained of chest pain in the Emergency Room and was therefore admitted for rule out. This was accomplished with serial enzymes and EKGs. Cardiology did see her and recommended a stress test. The patient, however, declined and wanted this done on an outpatient basis instead of waiting over the weekend. The reason for her admission to [facility] was IV antibiotics for a wound on her right upper extremity, which had a wound VAC. The patient was angry when in ER and actually disconnected the wound VAC. Wound consult was obtained and another wound VAC was placed. IV antibiotics actually were planned to be completed on day of admission were switched to p.o. antibiotics. She was given a script for that. DISCHARGE PHYSICAL EXAMINATION: Please refer to note from same day. DISCHARGE DISPOSITION: To home. DISCHARGE CONDITION: Stable. DISCHARGE DIAGNOSES: Chest pain, right upper extremity wound. DISCHARGE MEDICATIONS: Please refer to [facility]. DISCHARGE INSTRUCTIONS: The patient will follow up in Wound Clinic on Wednesday. She will call the Cardiology service and make an appointment for a stress test. She will follow up with [facility] and her primary care physician. REGGIE CHANCE MD DR: UR/nts JOB#: [id number] / [id number] SUSANNA Maria MD MTDD
== END 2017-01-23 19:08 | disposition home health service (06) | DRG 313 ==
LOC: ER 10:55 → 5 NORTH 14:00
PROVIDERS: ADMIT Internal Medicine Hematology & Oncology; ATTEND Internal Medicine Hematology & Oncology
DX: R07.89 Other chest pain (principal); Z68.41 Body mass index [BMI] 40.0-44.9, adult; J45.909 Unspecified asthma, uncomplicated; E11.9 Type 2 diabetes mellitus without complications; E66.01 Morbid (severe) obesity due to excess calories; E78.5 Hyperlipidemia, unspecified; F20.9 Schizophrenia, unspecified; G47.33 Obstructive sleep apnea (adult) (pediatric); H40.9 Unspecified glaucoma; I10 Essential (primary) hypertension; I25.10 Atherosclerotic heart disease of native coronary artery without angina pectoris; J44.9 Chronic obstructive pulmonary disease, unspecified; F41.9 Anxiety disorder, unspecified; G89.29 Other chronic pain; M19.90 Unspecified osteoarthritis, unspecified site; M48.02 Spinal stenosis, cervical region; Z88.6 Allergy status to analgesic agent; Z88.1 Allergy status to other antibiotic agents; Z86.73 Personal history of transient ischemic attack (TIA), and cerebral infarction without residual deficits; Z86.72 Personal history of thrombophlebitis; Z82.49 Family history of ischemic heart disease and other diseases of the circulatory system; Z88.0 Allergy status to penicillin
CPT/HCPCS: 36415; 71010; 80048; 80061; 80076; 83690; 83880; 84443; 84484; 85027; 87641; 93005; 93306; J2997; 99285-25

== ENCOUNTER → 2018-11-21 | Day surgery (SDC) | payer MEDICARE, MEDICAID ==
[~2018-11-21] MED LIST changes: +ACET325T9 PO; -AMLO10TA2 PO; +AMLO10TA6 PO; +ASPI325T11 PO; +CARV25TA PO; +CARV6.2511 PO; -CARV6.252 PO; +CLON0.2T PO; +DIVA250T4 PO; +FURO20TA3 PO; +GLIP5TAB10 PO; +HYDR-2145 PO; -HYDR25TA9 PO; +IV RINGERS,LACTATED 1000ML 1,000 ML IV SCH; +LIDOCAINE 1% PF 2 ML VIAL. ID PRN; +LIDOCAINE 1% PF 2 ML VIAL. ONE; +ONDANSETRON PF 4 MG/2 ML VIAL. IV PRN; +POTA20TA82 PO; +PROCHLORPERAZINE 10 MG/2 ML VIAL. IV PRN; +PROPOFOL 40 ML IV ONE; +fentaNYL PF VIAL 100 MCG/2 ML VIAL IV PRN
[2018-11-21 11:06] VITALS: BP 140/65
--- NOTE | 2018-11-23 14:08 | PATHOLOGY ---
[facility] Accession Number: [id number] . 01 Material submitted: . SIGMOID POLYP . 01 Clinical history: . Screening . 02 Diagnosis: Colon, sigmoid, biopsy: - Hyperplastic polyps, multiple fragments. (SKM:[facility] 11/23/2018) QTP/11/23/2018 . 02 Electronically signed: . Miguel Ty MD, Pathologist NPI- [id number] . 01 Gross description: . Received in formalin labeled "Omer, Genise, sigmoid polyp," are 3 segments of brown soft tissue measuring 1.5 x 0.6 x 0.2 cm in aggregate dimensions and ranging from 0.3 to 0.7 cm in maximum dimension. The specimen is submitted entirely in cassette A1. (TSD; 11/21/2018) TOB/TOB . 02 Pathologist provided ICD-10: K63.5 . 02 CPT . 828577 Specimen Comment: A courtesy copy of this report has been sent to Specimen Comment: [phone], . Specimen Comment: Report sent to and Performed at: 01 [facility] [address], [place] [id number] MD Ezekiel Frey MD Phone: [phone] Performed at: 02 [facility] [address] [place], [place] [id number] MD Rancho Jose MD Phone: [phone]
== END | disposition home or self-care (01) ==
LOC: ENDOS 09:08
PROVIDERS: ATTEND Internal Medicine Gastroenterology
DX: Z12.11 Encounter for screening for malignant neoplasm of colon (principal); K63.5 Polyp of colon; K57.30 Diverticulosis of large intestine without perforation or abscess without bleeding; K64.0 First degree hemorrhoids; Z86.010 Personal history of colon polyps; Z88.0 Allergy status to penicillin; Z88.2 Allergy status to sulfonamides; Z88.1 Allergy status to other antibiotic agents; Z88.5 Allergy status to narcotic agent; Z88.8 Allergy status to other drugs, medicaments and biological substances; Z91.041 Radiographic dye allergy status; F41.9 Anxiety disorder, unspecified; F32.9 Major depressive disorder, single episode, unspecified; E11.9 Type 2 diabetes mellitus without complications; I11.9 Hypertensive heart disease without heart failure; E78.00 Pure hypercholesterolemia, unspecified; I25.2 Old myocardial infarction; G47.30 Sleep apnea, unspecified; J43.9 Emphysema, unspecified; Z86.73 Personal history of transient ischemic attack (TIA), and cerebral infarction without residual deficits; Z82.3 Family history of stroke; Z83.71 Family history of colonic polyps; Z82.49 Family history of ischemic heart disease and other diseases of the circulatory system; Z80.41 Family history of malignant neoplasm of ovary; Z79.84 Long term (current) use of oral hypoglycemic drugs; Z79.899 Other long term (current) drug therapy
CPT/HCPCS: 45380; 88305; J2704

== ENCOUNTER → 2019-11-06 | Outpatient (CLI) | payer MEDICARE, MEDICAID ==
[2018-11-21 11:06] VITALS: BP 140/65
[~2019-11-06] MED LIST changes: -AMLO10TA6 PO; +AMLO10TA8 PO; -IV RINGERS,LACTATED 1000ML 1,000 ML IV SCH; -LIDOCAINE 1% PF 2 ML VIAL. ID PRN; -LIDOCAINE 1% PF 2 ML VIAL. ONE; -ONDANSETRON PF 4 MG/2 ML VIAL. IV PRN; +POTA20TA4 PO; -POTA20TA82 PO; -PROCHLORPERAZINE 10 MG/2 ML VIAL. IV PRN; -PROPOFOL 40 ML IV ONE; -fentaNYL PF VIAL 100 MCG/2 ML VIAL IV PRN
--- NOTE | 2019-11-07 11:59 | SLEEP ---
DATE OF STUDY: 11/06/2019 SLEEP STUDY REFERRING PHYSICIAN: Dr. Venecia Raymundo. The patient is a 64-year-old who weighs 260 pounds with a BMI of 41. The patient's Houston score was 18. The patient underwent split night study performed at [facility]. During the night study, the patient spent 473 minutes in bed and slept for 378 minutes today with a sleep efficiency of 80%. Sleep latency was 37 minutes with a REM latency of 210 minutes. Sleep architecture showed normal stage 1 sleep, increased stage 2 sleep, absent slow wave and normal REM sleep. During the initial diagnostic portion of the study, the patient slept for 117 minutes. During that time, the patient had 44 hypopneas. One obstructive apnea, one mixed apnea, no central apneas. The patient's AHI was 24 per hour. Supine AHI 24 per hour as well. The patient did not have REM sleep during the diagnostic portion. EKG monitoring revealed an average heart rate of 101 beats per minute with a maximum 110 beats per minute. Occasional PVCs and PACs seen. No significant PLM seen. Nocturnal oximetry study revealed an average oxygen saturation of 94% with the lowest of 69%. A 19% of the time in oxygen saturation remained between 80% and 89%. The patient met the criteria for CPAP initiation. It was started at 7 cm water and titrated up to 15 cm water. At the final pressure, the patient slept for 62 minutes. The patient had supine as well as REM sleep. The patient's AHI was reduced to 2 per hour. Oxygen saturation remained above 88% with one spot desaturation to 84%. The patient used medium size full face mask. IMPRESSION: 1. Moderate sleep apnea-hypopnea syndrome at an AHI of 24 per hour. Absence of REM sleep during the diagnostic portion can underestimate the severity of sleep apnea. 2. Nocturnal hypoxia, secondary to obstructive sleep apnea, but resolved with CPAP. 3. No clinically significant periodic limb movements. RECOMMENDATIONS: 1. CPAP at 15 cm water completely eliminated the patient's sleep apnea and should be used on a nightly basis. 2. Follow up in 4-6 weeks to assess compliance with CPAP and to document clinical improvement. 3. Weight loss is strongly advised. 4. Avoid MECHANICAL SERVICE TECHNICIAN depressants. 5. Cautioned regarding driving until symptoms of sleep apnea resolve with the use of CPAP. YVETTE ACUÑA MD DR: KELLY/stacia JOB#: [id number] / [id number] VENECIA Sanchez MD
== END | disposition home or self-care (01) ==
LOC: RT 18:55
PROVIDERS: ATTEND Family Medicine
DX: G47.33 Obstructive sleep apnea (adult) (pediatric) (principal); G47.34 Idiopathic sleep related nonobstructive alveolar hypoventilation
CPT/HCPCS: 95810

== ENCOUNTER 2021-03-19 09:46 | Emergency (ER) | payer MEDICARE, MEDICAID ==
[~2021-03-19] VITALS: Ht 172.7 cm; Wt 128.0 kg
[~2021-03-19 09:46] MED LIST changes: +AMLO-187 PO; -AMLO10TA8 PO; +LISI10TA16 PO; -LISI10TA2 PO
[2021-03-19 10:25] VITALS: BP 159/95
== END 2021-03-19 10:40 | disposition left against medical advice (07) ==
LOC: ER 09:46
DX: I10 Essential (primary) hypertension (principal); R42 Dizziness and giddiness; Z53.21 Procedure and treatment not carried out due to patient leaving prior to being seen by health care provider